=== PATIENT | female | born 1995 | race Caucasian/White ===

== ENCOUNTER → 2022-07-06 | Outpatient (CLI) | payer MEDICAID, SELFPAY ==
--- NOTE | 2022-07-06 14:44 | US_ITS ---
EXAM: US PELVIS TRANSABDOMINAL AND TRANSVAGINAL, COMPLETE CLINICAL INDICATION: pelvic pain, right sided pain TECHNIQUE: Transabdominal and transvaginal pelvic ultrasound was performed with grayscale and color Doppler imaging. Transvaginal imaging was used for better evaluation of the endometrium and adnexa. This report was created using [employer] report generation technology. COMPARISON: None. FINDINGS: UTERUS/CERVIX: The uterus measures 9.6 x 3.8 x 5.8 cm. The endometrium measures 6 mm. Anteverted. There is no uterine mass. RIGHT OVARY: The right ovary measures 2.4 x 4.0 x 2.7 cm. Blood flow is present in the right ovary. LEFT OVARY: Left ovary measures 1.7 x 2.3 x 1.6 cm. Blood flow is present in the left ovary. FREE FLUID: None. BLADDER: Unremarkable as visualized. Wall is normal thickness for degree of distention. US/Transvaginal Non- IMPRESSION: No acute findings in the pelvis. Electronically Signed: Pablo Alfaro MD at 17:47 EST ,
[2022-07-11 21:07] LABS: Chlamydia By Nucleic Acid AMP Negative (Negative)
[2022-07-12 14:57] LABS: Gonococcus By Nucleic Acid AMP Negative (Negative)
[2022-07-15 10:13] LABS: HPV Reflexed? NOT INDICATED
== END | disposition home or self-care (01) ==
PROVIDERS: Referring Provider Registered Nurse; Visit Provider Registered Nurse
DX: R10.2 Pelvic and perineal pain (principal); R10.31 Right lower quadrant pain; Z12.4 Encounter for screening for malignant neoplasm of cervix
CPT/HCPCS: 76830; 76856; 87491; 87591; 88175; 93976; G0145

== ENCOUNTER 2022-07-09 12:33 | Emergency (ER) | payer MEDICAID, SELFPAY ==
[2022-07-09 12:34] VITALS: BP 119/77; PULSE 88; RESP 16; TEMP 36; O2SAT 97; BMI 21.3
--- NOTE | 2022-07-09 13:43 | EDS_ITS ---
HPI HPI - GI History of Present Illness Chief Complaint: Abd Pain Informant: patient Abdominal Pain/Flank Pain Onset: Days Context: Gradual Onset Timing: Continuous Quality: Cramping Location: RLQ Worsened by: Movement (Stretching her abdomen) Relieved by: Nothing Nausea/Vomiting/Emesis GI Symptom: Positive for Nausea; Negative for Vomiting Diarrhea/Melena/Hematochezia GI Symptom: Negative for Diarrhea, Melena or Hematochezia Associated Symptoms Associated Symptoms: Positive for Hematuria; Negative for Dysuria or Frequency LMP: 06/27/2022 Narrative Narrative: Patient presents with right lower quadrant abdominal pain. Patient states she knows she has a right ovarian cyst. Patient states that she has talked to her [employer] who told her to come to the emergency department if her pain became worse. Patient states it has gotten worse. Patient admits to some nausea but denies any vomiting. Patient describes her pain as cramping. Patient states it is mainly over the right lower abdomen. Patient states it is worse whenever she stretches her abdomen. Patient admits to nausea but denies any vomiting. Patient admits to some hematuria but denies any dysuria or frequency. Patient states her last menstrual period was 06/27/2022. [facility] Medical History History of miscarriage Home Medications naproxen 500 mg tablet 500 mg PO BID PRN #20 tabs 07/09/22 [Rx Last Taken Unknown] Allergy/AdvReac Type Severity Reaction Status Date / Time No Known Allergies Allergy Unverified 07/09/22 12:34 Family History Grandmother Diabetes Mother CVA (cerebral vascular accident), Onset Age: 27 Grandfather CAD (coronary artery disease) Social History (Updated 07/06/22 @ 13:40 by Chelo Pena) adopted: No household members: significant other and children housing: other number of children: 2 current occupational status: employed current occupation: [employer] current occupational exposures/hazards: No pets and animals: No history of recent travel: No sexually active: Yes Smoking Status: Never smoker second hand exposure: No alcohol intake: never substance use type: marijuana what type of physical activity do you participate in: none seatbelt use: always do you feel safe at home: Yes ROS ROS ED Constitutional Constitutional ED: Denies chills or fever(s) Eyes Eyes: Reports blurry vision ENT ENT ED: Denies rhinorrhea or sore throat Cardiovascular Cardiovascular: Denies chest pain or palpitations Respiratory/Chest Respiratory/Chest: Reports cough; Denies dyspnea Gastrointestinal Gastrointestinal: Reports abdominal pain and nausea; Denies vomiting Genitourinary Genitourinary ED: Reports hematuria; Denies dysuria Musculoskeletal Musculoskeletal: Denies back pain or neck pain Integumentary Denies abscess or rash Neurologic Neurologic: Reports headache(s); Denies weakness Allergic/Immunologic Allergic/Immunologic ED: Denies mouth swelling or urticaria EXAM Physical Exam Const Vital Signs: 07/09/22 12:34 Temperature 96.8 F L Temperature Source Temporal Pulse Rate 88 Respiratory Rate 16 Blood Pressure 119/77 Blood Pressure Mean 91 Pulse Ox 97 Oxygen Delivery Method Room Air Positive well nourished and well developed General Appearance ED: well developed HEENT Reports moist mucous membranes Neck supple and no JVD Resp normal respiratory effort and clear to auscultation bilaterally Cardio regular rate, regular rhythm and no murmurs GI normal to inspection, nondistended, normoactive bowel sounds Palpation: soft and tender epigastric, LLQ, RLQ, LUQ, RUQ, periumbilical and suprapubic; Negative for guarding or rebound tenderness present Extremity normal to inspection General Extremety ED: Negative for edema or tenderness General Extremity: Negative for edema Neuro oriented x3, CN's II-XII intact bilaterally and no sensory deficits noted Sensorium / Orientation: alert Motor Exam: strength 5/5 throughout Psych mental status grossly normal Skin no rashes or lesions noted MDM MDM MDM Narrative Medical decision making narrative: Patient was given IV fluids and Toradol here. CBC was within normal limits. Comprehensive metabolic profile was within normal limits. Lactate was normal. Serum hCG was negative. Urinalysis does not show any evidence of urinary tract infection or hematuria. Patient was feeling better on reevaluation. I do not feel that an emergent ultrasound is necessary at this time. Patient was given a prescription for Naprosyn. Patient was instructed to follow-up with her [employer] this week as scheduled. Patient understood and was agreeable with the plan. All questions were answered. Lab Data Attestation: I reviewed the patient's lab results. Labs: Laboratory Results - last 24 hr 07/09/22 07/09/22 07/09/22 13:55 14:10 14:10 WBC 6.1 RBC 4.30 Hgb 12.8 Hct 41.0 MCV 95.3 MCH 29.8 MCHC 31.2 L RDW Std Deviation 43.8 RDW Coeff of Gretel 12.5 Plt Count 206 MPV 11.4 Immature Gran % (Auto) 0.300 Neut % (Auto) 74.0 H Lymph % (Auto) 19.4 [place] % (Auto) 5.1 Eos % (Auto) 1.0 Baso % (Auto) 0.2 Absolute Neuts (auto) 4.5 Absolute Lymphs (auto) 1.18 Nucleated RBC % 0 Sodium 141 Potassium 3.8 Chloride 108 H Carbon Dioxide 28.0 Anion Gap 5 BUN 15 Creatinine 0.74 Estim Creat Clear Calc 86.17 Est GFR (MDRD) Af Amer 121 Est GFR (MDRD) Non-Af 100 BUN/Creatinine Ratio 20.4 H Glucose 87 Lactic Acid Calcium 8.9 Total Bilirubin 0.40 AST 14 L ALT 16 Alkaline Phosphatase 42 L Total Protein 7.6 Albumin 3.9 Globulin 3.7 Albumin/Globulin Ratio 1.1 Serum , Qual Urine Color Yellow Urine Clarity Clear Urine pH 6.0 Ur Specific [place] 1.015 Urine Protein Negative Urine Glucose (UA) Normal Urine Ketones Negative Urine Occult Blood Negative Urine Nitrite Negative Urine Bilirubin Negative Urine Urobilinogen Normal Ur Leukocyte Esterase Negative Urine RBC 0 SEEN Urine WBC 0 SEEN Ur Squamous Epith Cells 0-5 SEEN Urine Bacteria 0 SEEN Urine Mucus 0 SEEN 07/09/22 07/09/22 14:10 14:10 WBC RBC Hgb Hct MCV MCH MCHC RDW Std Deviation RDW Coeff of Gretel Plt Count MPV Immature Gran % (Auto) Neut % (Auto) Lymph % (Auto) [place] % (Auto) Eos % (Auto) Baso % (Auto) Absolute Neuts (auto) Absolute Lymphs (auto) Nucleated RBC % Sodium Potassium Chloride Carbon Dioxide Anion Gap BUN Creatinine Estim Creat Clear Calc Est GFR (MDRD) Af Amer Est GFR (MDRD) Non-Af BUN/Creatinine Ratio Glucose Lactic Acid 0.4 Calcium Total Bilirubin AST ALT Alkaline Phosphatase Total Protein Albumin Globulin Albumin/Globulin Ratio Serum , Qual NEGATIVE Urine Color Urine Clarity Urine pH Ur Specific [place] Urine Protein Urine Glucose (UA) Urine Ketones Urine Occult Blood Urine Nitrite Urine Bilirubin Urine Urobilinogen Ur Leukocyte Esterase Urine RBC Urine WBC Ur Squamous Epith Cells Urine Bacteria Urine Mucus Discharge Plan Triage Chief Complaint: Abd Pain ED Provider: Flo Vargas Dx/Rx/DC Orders Clinical Impression: Right ovarian cyst, RLQ abdominal pain Instructions: ED Ovarian Cyst Prescriptions: New naproxen 500 MG tablet 500 mg PO BID PRN Qty: 20 0RF Primary Care Provider: Toni Paz Referrals: Toni Paz [Other] - 3-5 Days Disposition Disposition: Home, Self Care
[2022-07-09 14:03] LABS: Bacteria 0 SEEN /hpf (None Seen); Mucous, Urine 0 SEEN /hpf (<or=2+); Red Blood Cells-Urine 0 SEEN /hpf (0-5); White Blood Cells 0 SEEN /hpf (0-5)
[2022-07-09 14:15] LABS: Color, Urine Yellow (Yellow); Glucose, Dipstick Normal (Normal); Ketone-Dipstick Negative (Negative); Leukocyte Esterase-Dipstick Negative /ul (Negative); Nitrite-Dipstick Negative (Negative); Occult Blood-Urine Negative /ul (Negative); Protein-Dipstick Negative (Negative); Specific Gravity, Urine 1.015 (1.002-1.030); Urine Bilirubin Dipstick Negative (Negative); Urine Clarity Clear (Clear); Urine Urobilinogen Normal (Normal)
[2022-07-09] MEDS: 0.9% Normal Saline 1,000 ML 1000 ML IV (14:16)
[2022-07-09] MEDS: Ketorolac 30 MG/ML Syringe IV (14:17)
[2022-07-09 14:23] LABS: Squamous Epithelial Cells - UA 0-5 SEEN /hpf (5-10)
[2022-07-09 14:26] LABS: Absolute Lymphocyte Count 1.18 X10^3/uL (0.83-4.51); Absolute Neutrophil Count 4.5 X10^3/uL (2.0-7.7); Basophil# 0.01 X10^3/uL; Basophil% 0.2 % (0-1); Eosinophil# 0.06 X10^3/uL; Hemoglobin 12.8 g/dL (12.0-15.0); Lymphocyte # 1.18 X10^3/ul (0.83-4.51); Lymphocyte % 19.4 % (19-41); Mean Corp Hgb Conc 31.2 g/dL (32-36); Mean Corpuscular Hgb 29.8 pg (27.0-32.0); Mean Corpuscular Volume 95.3 fL (81-99); Mean Platelet Vol. 11.4 fl (6.2-12.0); Monocyte# 0.31 X10^3/uL; Monocyte% 5.1 % (0-10); NRBC Flagged by Analyzer 0 % (0-5); Neutrophil # 4.51 X10^3/uL (2.7-7.7); Platelet Count 206 K/mm3 (150-450); RBC Distribution Width CV 12.5 % (11.6-14.6); RBC Distribution Width SD 43.8 fl (35.1-43.9); White Blood Count 6.1 K/mm3 (4.4-11.0)
[2022-07-09 14:43] LABS: Internal QC Validated? YES +Cl - CLEAR BKGD; Pregnancy, Serum, hCG Quali. NEGATIVE Negative
[2022-07-09 14:49] LABS: ALB/GLOB Ratio 1.1 RATIO (0.9-2.4); AST(SGOT) 14 U/L (15-37); Alanine Aminotransfer ALT/SGPT 16 U/L (13-56); Albumin, Serum 3.9 g/dL (3.2-5.0); Alkaline Phosphatase 42 U/L (45-117); Anion Gap 5 (5-15); BUN 15 mg/dL (7-18); BUN/Creat Ratio 20.4 RATIO (10-20); Calcium,Total 8.9 mg/dL (8.5-10.1); Chloride 108 mmol/L (98-107); Creatinine, Serum 0.74 mg/dL (0.55-1.02); EST Glomerular Filtration Rate 100 mL/min (>60); Est Glom Filt Rate - Afr Amer 121 mL/min (>60); Estimated Creatinine Clearance 86.17 ml/min; Globulin 3.7 g/dL (2.2-4.2); Glucose 87 mg/dL (74-106); Potassium 3.8 mmol/L (3.5-5.1); Protein, Total 7.6 g/dL (6.4-8.2); Sodium Level 141 mmol/L (136-145)
[2022-07-09 14:51] LABS: Lactic Acid 0.4 mmol/L (0.4-1.9)
[2022-07-09 15:25] VITALS: BP 110/68; PULSE 78; RESP 16; O2SAT 99
== END 2022-07-09 15:26 | disposition home or self-care (01) ==
PROVIDERS: Emergency Provider Emergency Medicine; Visit Provider Emergency Medicine
DX: N83.201 Unspecified ovarian cyst, right side (principal); R31.9 Hematuria, unspecified; F12.90 Cannabis use, unspecified, uncomplicated; R10.31 Right lower quadrant pain
CPT/HCPCS: 80053; 81001; 83605; 84703; 85025; 96361; 96374; 99282; J7030; A4216

== ENCOUNTER → 2022-08-30 | Outpatient (CLI) | payer MEDICAID, SELFPAY | END | disposition home or self-care (01) | LOC: LABSPEC 14:23 | PROVIDERS: Visit Provider Nurse Practitioner Women's Health | DX: N89.8 Other specified noninflammatory disorders of vagina (principal) | CPT/HCPCS: 87070; 87077; 87205 ==

== ENCOUNTER → 2022-09-30 | Outpatient (CLI) | payer MEDICAID, SELFPAY ==
[2022-09-30 13:53] LABS: Erythrocyte Sedimentation Rate 6 mm/hr (0-30)
[2022-09-30 13:54] LABS: Absolute Lymphocyte Count 1.54 X10^3/uL (0.83-4.51); Absolute Neutrophil Count 4.6 X10^3/uL (2.0-7.7); Basophil# 0.02 X10^3/uL; Basophil% 0.3 % (0-1); Eosinophil# 0.09 X10^3/uL; Eosinophils% 1.4 % (0-5); Hematocrit 38.8 % (37-47); Hemoglobin 12.3 g/dL (12.0-15.0); Lymphocyte # 1.54 X10^3/ul (0.83-4.51); Lymphocyte % 23.2 % (19-41); Mean Corp Hgb Conc 31.7 g/dL (32-36); Mean Corpuscular Hgb 29.7 pg (27.0-32.0); Mean Corpuscular Volume 93.7 fL (81-99); Mean Platelet Vol. 12.1 fl (6.2-12.0); Monocyte# 0.43 X10^3/uL; Monocyte% 6.5 % (0-10); NRBC Flagged by Analyzer 0 % (0-5); Neutrophil # 4.55 X10^3/uL (2.7-7.7); Neutrophil % 68.3 % (47-70); Platelet Count 185 K/mm3 (150-450); RBC Distribution Width CV 12.4 % (11.6-14.6); RBC Distribution Width SD 42.7 fl (35.1-43.9); Red Blood Count 4.14 M/mm3 (4.2-5.4); White Blood Count 6.7 K/mm3 (4.4-11.0)
[2022-09-30 14:03] LABS: AST(SGOT) 16 U/L (15-37); Alanine Aminotransfer ALT/SGPT 17 U/L (13-56); Alkaline Phosphatase 38 U/L (45-117); Anion Gap 4 (5-15); BUN 14 mg/dL (7-18); BUN/Creat Ratio 18.8 RATIO (10-20); CRP < 2.90 mg/L (0.0-3.0); Chloride 107 mmol/L (98-107); Creatinine, Serum 0.74 mg/dL (0.55-1.02); EST Glomerular Filtration Rate 99 mL/min (>60); Est Glom Filt Rate - Afr Amer 120 mL/min (>60); Glucose 87 mg/dL (74-106); LDH 174 U/L (84-246); Potassium 3.9 mmol/L (3.5-5.1); Sodium Level 138 mmol/L (136-145)
[2022-10-03 15:07] LABS: Endomysial Antibody IgA Negative (Negative)
[2022-10-03 19:22] LABS: Immunoglobulin A 256 mg/dL (87-352); t-Transglutaminase IgA <2 U/mL (0-3)
[2022-10-08 15:07] LABS: Albumin 3.9 g/dL (2.9-4.4); Alpha-1-Globulins 0.3 g/dL (0.0-0.4); Alpha-2-Globulins 0.7 g/dL (0.4-1.0); Anti-Centromere B Ab <0.2 AI (0.0-0.9); Anti-Chromatin <0.2 AI (0.0-0.9); Anti-Jo <0.2 AI (0.0-0.9); Anti-Scleroderma-70 AB <0.2 AI (0.0-0.9); Beef <0.10 kU/L (Class 0); Clam <0.10 kU/L (Class 0); Codfish <0.10 kU/L (Class 0); Corn <0.10 kU/L (Class 0); Cytoplasmic Ab (C-ANCA) <1:20 titer (Neg:<1:20); Egg, White <0.10 kU/L (Class 0); Egg, Whole <0.10 kU/L (Class 0); Gamma Globulin 1.6 g/dL (0.4-1.8); Immunoglobulin A 250 mg/dL (87-352); Immunoglobulin E 45 IU/mL (6-495); Immunoglobulin G 1433 mg/dL (586-1602); Immunoglobulin M 89 mg/dL (26-217); Milk (Cow) <0.10 kU/L (Class 0); PROEL- TOTAL PROTEIN 7.6 g/dL (6.0-8.5); Peanut <0.10 kU/L (Class 0); Pork <0.10 kU/L (Class 0); RNP Ab <0.2 AI (0.0-0.9); SCALLOP <0.10 kU/L (Class 0); SESAME SEED <0.10 kU/L (Class 0); SJOGREN'S Anti-SS-A test < 0.2 AI (0.0-0.9); SJOGREN'S Anti-SS-B test < 0.2 AI (0.0-0.9); Shrimp <0.10 kU/L (Class 0); Smith Ab <0.2 AI (0.0-0.9); Soybean <0.10 kU/L (Class 0); Walnut, (Food) <0.10 kU/L (Class 0); Wheat <0.10 kU/L (Class 0)
[2022-10-09 09:19] LABS: Anti-dsDNA Ab 3 IU/mL (0-9); Chocolate <0.10 kU/L (Class 0); Perinuclear Ab (P-ANCA) <1:20 titer (Neg:<1:20)
== END | disposition home or self-care (01) ==
PROVIDERS: Referring Provider Internal Medicine Gastroenterology; Visit Provider Internal Medicine Gastroenterology
DX: R19.7 Diarrhea, unspecified (principal); R10.31 Right lower quadrant pain
CPT/HCPCS: 36415; 80053; 82784; 82785; 83516; 83615; 84165; 85025; 85652; 86003; 86005; 86140; 86225; 86235; 86255; 86256; 86334

== ENCOUNTER → 2022-10-04 | Outpatient (CLI) | payer MEDICAID, SELFPAY | END | disposition home or self-care (01) | LOC: LABSPEC 14:28 | PROVIDERS: Visit Provider Internal Medicine Gastroenterology | DX: R19.7 Diarrhea, unspecified (principal); K58.9 Irritable bowel syndrome, unspecified | CPT/HCPCS: 83630; 87493 ==

== ENCOUNTER → 2022-10-19 | Outpatient (CLI) | payer MEDICAID, SELFPAY ==
--- NOTE | 2022-10-19 08:42 | US_ITS ---
STUDY: ABDOMINAL ULTRASOUND REASON FOR EXAM: Female, 27 years old. Abdomen pain TECHNIQUE: Transabdominal ultrasound was performed with real-time and static dickinson scale imaging. TECHNICAL QUALITY: Adequate. COMPARISON: None. FINDINGS: Liver: The liver measures 11.8 cm. There is normal echogenicity of the liver. The bile ducts are within normal limits. There is hepatic color flow. The direction of portal flow is hepatopetal. There is no demonstrated mass lesion. Gallbladder: Normal distended gallbladder. The gallbladder wall measures 2.5 mm. There is a negative sonographic Loomis''s sign. There is no pericholecystic fluid. There are no gallstones. Common Bile Duct (C.B.D.): The common bile duct measures 2.0 mm. Pancreas: Normal size of the head, body and tail of the pancreas. There is normal echogenicity of the pancreas. There is no demonstrated pancreatic mass or cyst. Spleen: Normal size of the spleen. The spleen measures 8.1 cm x 5.1 cm x 5.3 cm. Right Kidney: Normal size of the right kidney. The right kidney measures 10 cm x 5.5 cm x 4 cm. Normal renal cortex. The right cortex measures 1.8 cm. There is no demonstrated renal mass or cyst. There is no right hydronephrosis. Left Kidney: Normal size of the left kidney. The left kidney measures 10.7 cm x 5.1 cm x 5 cm. Normal renal cortex. The left cortex measures 1.7 cm. There is no demonstrated renal mass or cyst. There is no left hydronephrosis. Aorta: Unremarkable. I.V.C.: The IVC is patent. There is no ascites. US/Abdomen Complete IMPRESSION: Normal abdominal ultrasound examination. Electronically Signed: Willie Francis MD at 18:00 EST ,
--- NOTE | 2022-10-19 09:28 | NM_ITS ---
CLINICAL: 27-year-old female with history of early satiety and clinical gastroparesis. SEMI-SOLID PHASE 99m Tc SULFUR COLLOID GASTRIC EMPTYING STUDY COMPARISON: None available FINDINGS: The patient was administered 1.2 mCi of 99m Tc sulfur colloid mixed with oatmeal and consumed per os. Image acquisitions in the anterior projection were obtained for 60 minutes. There is prompt visualization of the stomach. There is no gastroesophageal reflux identified. First order kinetics are maintained throughout the duration of the acquisitions. The T ? linear fit was extrapolated to be 67.56 minutes, (Normal: 12-56 minutes). NM/Gastric Emptying Study IMPRESSION: 1. ABNORMAL 99m Tc sulfur colloid semi-solid phase (oatmeal) gastric emptying imaging examination. A. There is delayed semi-solid phase gastric emptying compared to normal controls.. (Jake et al, J Nucl Med Tech 38: 186, 2010). Electronically Signed: Bryan Tovar, at 20:46 EST ,
== END | disposition home or self-care (01) ==
LOC: NM 08:40
PROVIDERS: Referring Provider Internal Medicine Gastroenterology; Visit Provider Internal Medicine Gastroenterology
DX: R10.31 Right lower quadrant pain (principal); R19.7 Diarrhea, unspecified
CPT/HCPCS: 76700; 78264; A9541

== ENCOUNTER 2022-10-29 09:38 | Emergency (ER) | payer MEDICAID, SELFPAY ==
[2022-10-29 09:40] VITALS: BP 106/67; PULSE 65; RESP 14; TEMP 36.8; O2SAT 100; BMI 21.4
--- NOTE | 2022-10-29 10:07 | ED.VIS.GI ---
HPI HPI - GI History of Present Illness Chief Complaint: Abd Pain Narrative Narrative: 27-year-old female presents with problems with gastroparesis. She states she has had problems over the last 2 years with abdominal bloating, lower abdominal pain, nausea and vomiting. Approximately 1 year ago she was diagnosed with gastroparesis. However, she is not diabetic, she is not older. She states that she needs to have a work-up with Dr. Purvis scheduled for November, 1 month from now. She has daily problems with abdominal bloating, and nausea and vomiting. She vomited twice today without any blood in her emesis. She also relates history that at times she gets a vaginal bleeding whenever she has exacerbations of this. She went to her [employer], and from their perspective there is no uterine dysfunction. She denies any exacerbating or alleviating factors to her abdominal bloating. She is no longer nauseated. No fever or chills. No exacerbating or alleviating factors. She states that she had to come to the emergency department previously but that was last year. [facility] Medical History Gastroparesis History of miscarriage Home Medications metoclopramide HCl 5 mg tablet (Reglan) 5 mg PO QAC #90 tabs 10/20/22 [Rx Last Taken Unknown] Allergy/AdvReac Type Severity Reaction Status Date / Time No Known Allergies Allergy Unverified 08/30/22 13:26 Family History Grandmother Diabetes Mother CVA (cerebral vascular accident), Onset Age: 27 Grandfather CAD (coronary artery disease) Social History adopted: No household members: significant other and children housing: other number of children: 2 current occupational status: employed current occupation: [employer] current occupational exposures/hazards: No pets and animals: No history of recent travel: No sexually active: Yes Smoking Status: Current some day smoker tobacco type: cigarettes second hand exposure: No alcohol intake: never substance use type: marijuana what type of physical activity do you participate in: none seatbelt use: always do you feel safe at home: Yes ROS ROS ED ROS Narrative Constitutional: No fever, no chills. HEENT: No sore throat. No neck pain. No loss of vision. No rhinorrhea. Cardiovascular: No chest pain. No palpitations. No pedal edema. Respiratory: No cough, no shortness of breath. Abdominal: Lower abdominal pain. Positive nausea and vomiting, vomited twice today with out gross hematemesis. Abdominal bloating. Genitourinary: No dysuria. No hematuria. Musculoskeletal: No myalgias. No arthralgias. Neurologic: No headaches. No dizziness. No lightheadedness. Skin: No rash. No change in color. Psychiatric: No depression. No anxiety. EXAM Physical Exam Narrative Exam Narrative: Afebrile. Vital signs noted. HEENT: Normocephalic. Atraumatic. PERRL, EOMI. Neck soft and supple. No point tenderness or step off. Cardiovascular: Regular rate and rhythm. No murmurs, rubs, or gallops appreciated. Respiratory: No tachypnea. Lungs clear to auscultation bilaterally. Gastrointestinal: Abdomen soft, mild tenderness bilateral lower quadrants. Positive abdominal bloating/distention. Positive bowel sounds. No rebound or guarding. Neurological: Awake. Alert. Nonfocal, nonlateralizing. Skin: No rash. Normal color. No pallor. Musculoskeletal: No pedal edema. Full range of motion extremities. Const Vital Signs: 10/29/22 09:40 10/29/22 11:39 Temperature 98.2 F Temperature Source Temporal Pulse Rate 65 Respiratory Rate 14 16 Blood Pressure 106/67 Blood Pressure Mean 80 Pulse Ox 100 Oxygen Delivery Method Room Air MDM MDM MDM Narrative Medical decision making narrative: Concern is for gastroparesis exacerbation versus small or large bowel obstruction. Comprehensive work-up was pursued. I reviewed her laboratory work, she has normal white count of 6.8, hemoglobin normal at 14.0, hematocrit 42.7. Platelet count normal at 206. In review of her CMP, she has a normal sodium of 141, normal potassium of 3.8, chloride normal at 108. Glucose appropriately elevated at 85 with a normal anion gap of 8. Serum is negative. Lipase normal at 109. Urinalysis shows no evidence of infection. I reviewed her prior records, and she was seen for right lower quadrant abdominal pain thought to be from an ovarian cyst. I do feel that CT imaging might be indicated to help rule out a bowel obstruction. She did drink oral contrast. However, she states that she is having problems with bowel movements and does not want to wait for a CT scan or the results. She was told of the risk of her having a bowel obstruction, albeit low, but would like to sign out AGAINST MEDICAL ADVICE and follow-up with her pc technician, Dr. Purvis. As I do not think that she is having gastroparesis any longer because she is having diarrhea, I feel she can sign out AGAINST MEDICAL ADVICE and go safely home with follow-up. She was told of the risk of permanent disability and , continued pain, and she acknowledges an understanding. I do feel that she has the capacity to sign out AGAINST MEDICAL ADVICE. History & Record Review Discussion w/independent historian: Patient Additional record(s) reviewed:: Prior ED visit and Prior labs Lab Data Attestation: I reviewed the patient's lab results. Labs: Laboratory Results - last 24 hr 10/29/22 10/29/22 10/29/22 10:15 10:15 10:15 WBC 6.8 RBC 4.63 Hgb 14.0 Hct 42.7 MCV 92.2 MCH 30.2 MCHC 32.8 RDW Std Deviation 42.5 RDW Coeff of Gretel 12.5 Plt Count 206 MPV 12.4 H Immature Gran % (Auto) 0.300 Neut % (Auto) 66.4 Lymph % (Auto) 23.7 [place] % (Auto) 7.5 Eos % (Auto) 1.8 Baso % (Auto) 0.3 Absolute Neuts (auto) 4.5 Absolute Lymphs (auto) 1.62 Nucleated RBC % 0 Sodium 141 Potassium 3.8 Chloride 108 H Carbon Dioxide 25.0 Anion Gap 8 BUN 15 Creatinine 0.81 Estim Creat Clear Calc 78.72 Est GFR (MDRD) Af Amer 109 Est GFR (MDRD) Non-Af 90 BUN/Creatinine Ratio 18.6 Glucose 85 Calcium 8.8 Total Bilirubin 0.40 AST 14 L ALT 21 Alkaline Phosphatase 44 L Total Protein 8.4 H Albumin 4.4 Globulin 4.0 Albumin/Globulin Ratio 1.1 Lipase 109 Serum , Qual NEGATIVE Urine Color Urine Clarity Urine pH Ur Specific [place] Urine Protein Urine Glucose (UA) Urine Ketones Urine Occult Blood Urine Nitrite Urine Bilirubin Urine Urobilinogen Ur Leukocyte Esterase Urine RBC Urine WBC Ur Squamous Epith Cells Urine Bacteria Urine Mucus 10/29/22 10:35 WBC RBC Hgb Hct MCV MCH MCHC RDW Std Deviation RDW Coeff of Gretel Plt Count MPV Immature Gran % (Auto) Neut % (Auto) Lymph % (Auto) [place] % (Auto) Eos % (Auto) Baso % (Auto) Absolute Neuts (auto) Absolute Lymphs (auto) Nucleated RBC % Sodium Potassium Chloride Carbon Dioxide Anion Gap BUN Creatinine Estim Creat Clear Calc Est GFR (MDRD) Af Amer Est GFR (MDRD) Non-Af BUN/Creatinine Ratio Glucose Calcium Total Bilirubin AST ALT Alkaline Phosphatase Total Protein Albumin Globulin Albumin/Globulin Ratio Lipase Serum , Qual Urine Color Yellow Urine Clarity Sl. Cloudy Urine pH 5.0 Ur Specific [place] 1.025 Urine Protein Negative Urine Glucose (UA) Normal Urine Ketones Negative Urine Occult Blood 10 H Urine Nitrite Negative Urine Bilirubin Negative Urine Urobilinogen Normal Ur Leukocyte Esterase Negative Urine RBC 0-5 SEEN Urine WBC 0 SEEN Ur Squamous Epith Cells 5-10 SEEN Urine Bacteria RARE Urine Mucus 0 SEEN Discharge Plan Triage Chief Complaint: Abd Pain ED Provider: Beto Hussein Dx/Rx/DC Orders Clinical Impression: Abdominal pain, Diarrhea, Gastroparesis, Left against medical advice Instructions: Gastroparesis, ED Abdominal Pain Unkn Cause Fem, ED Diarrhea, Unknown Cause Prescriptions: No Action metoclopramide HCl [Reglan] 5 mg tablet 5 mg PO QAC Qty: 90 1RF Rx Instructions: administer 30 minutes before meals Primary Care Provider: Care Physician,No Primary Referrals: Daquan Purvis, DO [Med Staff - Active Staff] - As soon as possible Care Physician,No Primary [Primary Care Provider] - Disposition Disposition: Against Medical Advice Discharge Date/Time: 10/29/22 11:57 Capacity Capacity Assessment Tool Can the patient make a choice & communicate that choice?: Yes Can the patient understand benefits, risks and alternatives?: Yes Can the patient make a logical, rational choice?: Yes Is the choice the patient makes consistent w/ their values?: Yes Is there an impending, emergent risk to the patient?: No Is there a Surrogate Available?: No i.e. HCPOA: No i.e. close relative (spouse, child, parent, sibling)?: No
[2022-10-29] MEDS: 0.9% Normal Saline 1,000 ML 1000 ML IV (10:29)
[2022-10-29 10:32] LABS: Absolute Lymphocyte Count 1.62 X10^3/uL (0.83-4.51); Absolute Neutrophil Count 4.5 X10^3/uL (2.0-7.7); Basophil# 0.02 X10^3/uL; Basophil% 0.3 % (0-1); Eosinophil# 0.12 X10^3/uL; Eosinophils% 1.8 % (0-5); Hematocrit 42.7 % (37-47); Lymphocyte # 1.62 X10^3/ul (0.83-4.51); Lymphocyte % 23.7 % (19-41); Mean Corp Hgb Conc 32.8 g/dL (32-36); Mean Corpuscular Hgb 30.2 pg (27.0-32.0); Mean Corpuscular Volume 92.2 fL (81-99); Mean Platelet Vol. 12.4 fl (6.2-12.0); Monocyte# 0.51 X10^3/uL; Monocyte% 7.5 % (0-10); NRBC Flagged by Analyzer 0 % (0-5); Neutrophil # 4.54 X10^3/uL (2.7-7.7); Neutrophil % 66.4 % (47-70); Platelet Count 206 K/mm3 (150-450); RBC Distribution Width CV 12.5 % (11.6-14.6); RBC Distribution Width SD 42.5 fl (35.1-43.9); Red Blood Count 4.63 M/mm3 (4.2-5.4); White Blood Count 6.8 K/mm3 (4.4-11.0)
[2022-10-29 10:44] LABS: Mucous, Urine 0 SEEN /hpf (<or=2+); White Blood Cells 0 SEEN /hpf (0-5)
[2022-10-29 10:46] LABS: Color, Urine Yellow (Yellow); Glucose, Dipstick Normal (Normal); Ketone-Dipstick Negative (Negative); Leukocyte Esterase-Dipstick Negative /ul (Negative); Nitrite-Dipstick Negative (Negative); Occult Blood-Urine 10 /ul (Negative); Protein-Dipstick Negative (Negative); Specific Gravity, Urine 1.025 (1.002-1.030); Urine Bilirubin Dipstick Negative (Negative); Urine Clarity Sl. Cloudy (Clear); Urine Urobilinogen Normal (Normal)
[2022-10-29 10:51] LABS: ALB/GLOB Ratio 1.1 RATIO (0.9-2.4); AST(SGOT) 14 U/L (15-37); Alanine Aminotransfer ALT/SGPT 21 U/L (13-56); Albumin, Serum 4.4 g/dL (3.2-5.0); Alkaline Phosphatase 44 U/L (45-117); Anion Gap 8 (5-15); BUN 15 mg/dL (7-18); BUN/Creat Ratio 18.6 RATIO (10-20); Calcium,Total 8.8 mg/dL (8.5-10.1); Chloride 108 mmol/L (98-107); Creatinine, Serum 0.81 mg/dL (0.55-1.02); EST Glomerular Filtration Rate 90 mL/min (>60); Est Glom Filt Rate - Afr Amer 109 mL/min (>60); Estimated Creatinine Clearance 78.72 ml/min; Glucose 85 mg/dL (74-106); Lipase 109 U/L (73-393); Potassium 3.8 mmol/L (3.5-5.1); Protein, Total 8.4 g/dL (6.4-8.2); Sodium Level 141 mmol/L (136-145)
[2022-10-29 10:52] LABS: Bacteria RARE /hpf (None Seen); Red Blood Cells-Urine 0-5 SEEN /hpf (0-5); Squamous Epithelial Cells - UA 5-10 SEEN /hpf (5-10)
[2022-10-29 10:56] LABS: Internal QC Validated? YES +Cl - CLEAR BKGD; Pregnancy, Serum, hCG Quali. NEGATIVE Negative
[2022-10-29 11:39] VITALS: RESP 16
== END 2022-10-29 11:57 | disposition left against medical advice (07) ==
PROVIDERS: Emergency Provider Emergency Medicine; Visit Provider Emergency Medicine
DX: R10.9 Unspecified abdominal pain (principal); R19.7 Diarrhea, unspecified; K31.84 Gastroparesis; F12.90 Cannabis use, unspecified, uncomplicated; F17.210 Nicotine dependence, cigarettes, uncomplicated; Z53.21 Procedure and treatment not carried out due to patient leaving prior to being seen by health care provider
CPT/HCPCS: 80053; 81001; 83690; 84703; 85025; 99283; A4216

== ENCOUNTER 2023-03-01 10:20 | Day surgery (SDC) | payer MEDICAID, SELFPAY ==
[2022-12-06 12:33] LABS: Internal QC Validated? YES +Cl - CLEAR BKGD; Pregnancy, Urine Negative Negative
--- NOTE | 2022-12-06 12:39 | SUR.PREOP ---
PT HAD EATEN A BANANA AND TOAST AT 0900 AND A FULL MEAL THE PREVIOUS NIGHT, PT WAS UNDER THE IMPRESSION SHE WAS AN EGD AND A COLONOSCOPY, PER ANESTHESIA AND DR. FRIEND PATIENT COULD HAVE EGD AT 3PM BUT WAS NOT SCHEDULED FOR A COLONOSCOPY AND COULDN'T GET THAT DONE TODAY ANYWAYS BECAUSE SHE WAS NOT PROPERLY PREPPED. PT OPTED TO RESCHEDULE HER APPOINTMENT FOR A LATER DATE.
--- NOTE | 2022-12-06 15:47 | SUR.PREOP ---
Patient was not NPO prior to arrival and did not complete bowel prep so was cancelled
--- NOTE | 2023-03-01 10:21 | HP.PCM_ITS ---
History and Physical Date of Admission: 03/01/23 MYESHA FERGUSON, is a 27 F who presents to the office today for Initial consult. [facility] ED presentation 07.09.22 with RLQ abdominal pain with nausea without emesis. Aggravated with abdominal stretching. Career Resource Specialist encouraged presentation for worsening pain r/t right ovarian cyst. Provided with pain and nausea medications and discharged home. 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 Symptom onset following miscarriage with ROQ/pelvic pain, loose stools with increased frequency and urgency with one episode of blood, bloating with increased abdominal discomfort (days with bloating are significantly worse than other days). With onset symptoms were severe and have since settled to be present though not as intense. Prior to symptom onset she was having normal and daily BM without difficulty and complete evacuation. She does have anxiety/depression at a low/moderate, also diagnosed with Schizophrenia which she feels is well managed. ROS Const Constitutional: No anorexia, fatigue, fever(s), weight change or sleep problems Eyes Eyes: No change in vision ENT ENT: No abnormal hearing, difficulty swallowing, mouth lesions, tongue swelling or throat swelling Resp Respiratory: No cough or shortness of breath Cardio Cardiology: No chest pain at rest, chest pain with exertion, shortness of breath or dyspnea on exertion Gastro GI: No difficulty swallowing Genitourinary-Female: No difficulty urinating or burning urination Musc Musculoskeletal: No joint pain, joint swelling, muscle weakness or decreased muscle mass Skin Skin: No hair loss in leg, yellowing of the eye, itchy eyes, rash, skin ulcer or skin swelling Neuro Neurology: No abnormal hearing, abnormal movements, confusion, unsteady gait/balance or memory loss Psych Psychiatric: No anxiety, No confusion and No memory loss Endo Endocrine: No fatigue or weight change Aller/Imm Allergy/Immunologic: No itchy eyes, throat swelling or tongue swelling Alfred/Lymp Hematologic/Lymphatic: No easy bleeding, easy bruising or enlarged lymph nodes Exam Const General: cooperative and comfortable Nutritional Appearance: average body habitus and well nourished [facility] Head: normal to inspection Ears: hearing grossly normal bilaterally Nose: external nose normal Face and sinus: normal facial exam Mouth: oral mucosae normal Throat: posterior oropharynx normal Eyes General: appearance normal, both eyes and all related structures Neck Neck: normal visual inspection Chest Chest palpation & inspection: normal inspection of the chest and normal palpatio n of entire chest wall Resp Effort & Inspection: normal respiratory effort Auscultation: Bilateral: Clear to Auscultation Cardio Palpation: normal PMI Rate: regular rate Rhythm: regular rhythm GI Inspection: normal to inspection Auscultation: normal bowel sounds Percussion: normal to percussion Palpation: no hepatosplenomegaly Skin General: no rashes or lesions noted Neuro General: patient alert Extrem General: normal to inspection Psych Affect: normal affect Quality Reporting Tobacco Screening ([facility] 138) Smoking Status: Never smoker Assessment and Plan Assessment and Plan (1) RLQ abdominal pain: Status: Chronic Comment: exam likely ovarian cyst Plan: Differential diagnosis for chronic right lower quadrant abdominal pain does include volvulus and less likely intussusception or colonic Crohn's disease. We will get a CT scan abdomen pelvis for further evaluation. (2) Frequent loose stools: Status: Chronic Plan: The differential diagnosis for her symptoms to include celiac disease, inflammatory bowel disease, IBS with diarrhea, hypergastrinemia, protein-losing enteropathy, exocrine pancreatic insufficiency. We will do biochemical testing and stool testing for a full evaluation of her GI tract as she has had other evaluations including upper and lower endoscopy which may need to be repeated. However I would like to see if we can find a organic cause prior to invasive testing. Orders: Orders Comprehensive Metabolic Profil Today R10.31 - Right lower quadrant pain, R19.7 - Diarrhea, unspecified CRP Today R10.31 - Right lower quadrant pain, R19.7 - Diarrhea, unspecified LDH Today R10.31 - Right lower quadrant pain, R19.7 - Diarrhea, unspecified Abdomen/Pelvis WITH Contrast Today R10.31 - Right lower quadrant pain, R19.7 - Diarrhea, unspecified CBC W/Diff, Automated Today R10.31 - Right lower quadrant pain, R19.7 - Diarrhea, unspecified Erythrocyte Sed Rate Today R10.31 - Right lower quadrant pain, R19.7 - Diarrhea, unspecified ASAEL Comprehensive Panel Today R10.31 - Right lower quadrant pain, R19.7 - Diarrhea, unspecified Calprotectin, Stool Today R10.31 - Right lower quadrant pain, R19.7 - Diarrhea, unspecified OVA+PARA w/Giardia EIA [id number] Today R10.31 - Right lower quadrant pain, R19.7 - Diarrhea, unspecified CDIFF (PCR) Today R10.31 - Right lower quadrant pain, R19.7 - Diarrhea, unspecified ENTERIC PATHOGEN PANEL STOOL Today K58.9 - Irritable bowel syndrome without diarrhea, R10.31 - Right lower quadrant pain, R19.7 - Diarrhea, unspecified Stool Lactoferrin/WBC Today R10.31 - Right lower quadrant pain, R19.7 - Diarrhea, unspecified ANCA Today R10.31 - Right lower quadrant pain, R19.7 - Diarrhea, unspecified Celiac Disease Profile Today R10.31 - Right lower quadrant pain, R19.7 - Diarrhea, unspecified Immunoglobulins G/A/M/E Today R10.31 - Right lower quadrant pain, R19.7 - Diarrhea, unspecified MARCUS + Protein Elect, Serum Today R10.31 - Right lower quadrant pain, R19.7 - Diarrhea, unspecified Pancreatic Elastase, Fecal Today R10.31 - Right lower quadrant pain, R19.7 - Diarrhea, unspecified Miscellaneous Lab Procedure Today R10.31 - Right lower quadrant pain, R19.7 - Diarrhea, unspecified Allergen, Rast Food Profile Today R10.31 - Right lower quadrant pain, R19.7 - Diarrhea, unspecified Allergen, Food Profile Today R10.31 - Right lower quadrant pain, R19.7 - Diarrhea, unspecified Gastric Emptying Study Today R10.31 - Right lower quadrant pain, R19.7 - Diarrhea, unspecified I have examined the patient and the H&P has been reviewed. There are no clinical changes since date of exam.
[2023-03-01 10:38] LABS: Internal QC Validated? YES +Cl - CLEAR BKGD; Pregnancy, Urine Negative Negative
[2023-03-01 10:48] VITALS: BP 110/70; PULSE 63; RESP 16; TEMP 36.7; O2SAT 100; BMI 22.4
--- NOTE | 2023-03-01 11:15 | IMM_PTH ---
PATIENT: MYESHA FERGUSON LOC: EN U#:[id number] AGE/SX: 28/F ROOM: RE03/01/[address]: Dr. Daquan Purvis DO : 1995 BED: DIS: 03/01/2023 SPEC #: [id number] RECD: 03/02/23 13:09 STATUS: HARSH REBertrand #: [id number] CHUCK: 03/01/23 11:[address]: Daquan Purvis DEPT: IMMUNOHISTOCHEMISTRY RECD BY: Bryanna Gil ENTERED: 03/02/23 13:10 SP TYPE: IMMUNO OT DR: Cristal Primary Care Phys Tissues: A - Gastric mucous membrane Procedures: H Pylori (initial) PHYSICIAN & INSTITUTION [place] [address] SPECIMEN INFORMATION: Tissue Source: A - Gastric cardia Clinical Info: RLQ abdominal pain, frequent loose stools Specimen Number: [id number] CPT code: 37684 METHODOLOGY: Deparaffinized sections of prefer/formalin-fixed tissue or PAP/DQ stained slides are incubated with monoclonal/polyclonal antibodies/oligonucleotide probes. Localization is made via biotin free immunoperoxidase method. Appropriate controls are performed and reacted as expected. Results on target cell population are indicated in the following table: RESULTS: ANTIBODY / CLONE RESULT Block A H Pylori (polyclonal) positive These tests were developed and their performance characteristics determined by [facility]. They may not have been cleared or approved by the U.S. Food and Drug Administration. The FDA has determined that such clearance or approval is not necessary. The above immunohistochemical/dualISH markers are ordered and reviewed by the Pathologist. INTERPRETATION: A. Gastric cardia, biopsy: Positive for a few Helicobacter pylori organisms. ADDIE:darwin 03/03/2023
--- NOTE | 2023-03-01 11:15 | EGD_PTH ---
PATIENT: MYESHA FERGUSON LOC: EN U#:[id number] AGE/SX: 28/F ROOM: RE03/01/[address]: Dr. Daquan Purvis DO : 1995 BED: DIS: 03/01/2023 SPEC #: [id number] RECD: 03/01/23 14:05 STATUS: HARSH SAHRA #: [id number] CHUCK: 03/01/23 11:[address]: Daquan uPrvis DEPT: SURGICAL PATHOLOGY RECD BY: Nelida Ramos ENTERED: 03/02/23 09:58 SP TYPE: EGD BIOPSY OT DR: Cristal Primary Care Phys Tissues: A - Gastric mucous membrane B - Duodenum, NOS C - Sigmoid colon biopsy D - Ileum, NOS E - COLON BIOPSY Procedures: Surgery Specimen Level IV HEADER OPERATION: Colonoscopy, EGD ([facility] [place]), biopsy, polypectomy PRE-OP DIAGNOSIS: RLQ abdominal pain, frequent loose stools TISSUE SUBMITTED: A - Gastric cardia biopsy, B - Duodenum biopsy, C - Sigmoid polyp, D - Terminal ileum biopsy, E - Random colonic biopsy MICROSCOPIC DIAGNOSIS A. Gastric cardia, biopsy: Moderate gastritis. See microscopic description and comment. B. Duodenum, biopsy: Fragments of duodenal mucosa, no pathologic diagnosis. C. Sigmoid polyp, polypectomy: Tubular adenoma. D. Terminal ileum, biopsy: Fragments of small intestinal mucosa with focal ulceration and associated acute inflammation. See comment. E. 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 SJ:darwin 03/03/2023 COMMENT A. The results of immunohistochemistry for Helicobacter pylori will be reported separately ([id number]). D. Focal cryptitis is noted. Mild glandular distortion is also present. Crypt abscesses or granulomas are not seen. No evidence of dysplasia. Correlation with clinical, endoscopic findings and appropriate follow-up are necessary. MICROSCOPIC DESCRIPTION Slides are reviewed. A. The specimen shows fragments of gastric mucosa with chronic inflammatory cell infiltrates in the lamina propria consisting of lymphocytes and plasma cells, consistent with moderate chronic gastritis. GROSS DESCRIPTION A - Received in fixative is one container labeled with the patient's name and designated gastric cardia biopsy. The specimen consists of multiple irregular fragments of light jansen soft tissue that in aggregate measure 1.0 x 0.3 x 0.1 cm. The specimen is totally submitted in one cassette. B - Received in fixative is one container labeled with the patient's name and designated duodenum biopsy. The specimen consists of two irregular fragments of light jansen soft tissue that in aggregate measure 0.6 x 0.3 x 0.1 cm. The specimen is totally submitted in one cassette. C - Received in fixative is one container labeled with the patient's name and designated sigmoid polyp. The specimen consists of a pink-red polyp measuring 0.6 x 0.6 x 0.6 cm. The presumed base is inked. A few fragments of hemorrhagic mucoid tissue is also noted. The polyp is bisected. The entire specimen is submitted in one cassette. D - Received in fixative is one container labeled with the patient's name and designated terminal ileum biopsy. The specimen consists of multiple irregular fragments of light jansen soft tissue that in aggregate measure 1.0 x 0.3 x 0.1 cm. The specimen is totally submitted in one cassette. E - Received in fixative is one container labeled with the patient's name and designated random colonic biopsy. The specimen consists of multiple irregular fragments of light jansen soft tissue that in aggregate measure 2.0 x 0.3 x 0.1 cm. The specimen is totally submitted in one cassette. / SJ:rg 03/02/2023 TC:2 CPT: 54025 x5
[2023-03-01] MEDS: Lactated Ringers 1,000 ML 15 ML IV (11:30)
[2023-03-01 11:51] VITALS: BP 108/72; BP 110/70; PULSE 86; RESP 16; TEMP 36.6; O2SAT 100
[2023-03-01 11:55] VITALS: BP 101/75; BP 110/70; PULSE 72; RESP 16; O2SAT 100
--- NOTE | 2023-03-01 11:56 | OP.EGD_ITS ---
Patient Name: Sarah Pearson Procedure Date: 03/01/2023 11:24 AM Date of : 1995 Age: 28 Procedure: Upper GI endoscopy Indications: Epigastric abdominal pain Providers: Daquan Purvis DO Referring MD: No Primary Care Physician Medicines: Monitored Anesthesia Care Patient Profile: This is a 28 year old female. Refer to note in patient chart for documentation of history and physical. Patient has symptoms of acute epigastric abdominal pain. Complications: No immediate complications. Procedure: Pre-Anesthesia Assessment: - Prior to the procedure, a History and Physical was performed, and patient medications and allergies were reviewed. The patient is competent. The risks and benefits of the procedure and the sedation options and risks were discussed with the patient. All questions were answered and informed consent was obtained. Patient identification and proposed procedure were verified by the physician in the pre-procedure area. Mental Status Examination: alert and oriented. Airway Examination: normal oropharyngeal airway and neck mobility. Respiratory Examination: clear to auscultation. Prophylactic Antibiotics: The patient does not require prophylactic antibiotics. Prior Anticoagulants: The patient has taken no previous anticoagulant or antiplatelet agents. After reviewing the risks and benefits, the patient was deemed in satisfactory condition to undergo the procedure. The anesthesia plan was to use minimal sedation / analgesia (anxiolysis). Immediately prior to administration of medications, the patient was re-assessed for adequacy to receive sedatives. The heart rate, respiratory rate, oxygen saturations, blood pressure, adequacy of pulmonary ventilation, and response to care were monitored throughout the procedure. The physical status of the patient was re-assessed after the procedure. After obtaining informed consent, the endoscope was passed under direct vision. Throughout the procedure, the patient's blood pressure, pulse, and oxygen saturations were monitored continuously. The Colonoscope was introduced through the mouth, and advanced to the second part of duodenum. The upper GI endoscopy was accomplished without difficulty. The patient tolerated the procedure well. Scope In: 11:29:08 AM Scope Out: 11:31:53 AM Total Procedure Duration Time 0 hours 2 minutes 45 seconds Findings: The examined esophagus was normal. Diffuse severe inflammation with hemorrhage characterized by adherent blood, erosions, erythema and friability was found in the stomach. Biopsies were taken with a cold forceps for histology. Verification of patient identification for the specimen was done. Estimated blood loss was minimal. Patchy mildly erythematous mucosa without active bleeding and with no stigmata of bleeding was found in the duodenal bulb. Biopsies were taken with a cold forceps for histology. Verification of patient identification for the specimen was done. Estimated blood loss was minimal. Impression: - Normal esophagus. - Bile gastritis with hemorrhage. Biopsied. - Erythematous duodenopathy. Biopsied. Recommendation: - Discharge patient to home. - Resume previous diet. - Continue present medications. - Await pathology results. Procedure Code(s): --- Professional --- 65846, Esophagogastroduodenoscopy, flexible, transoral; with biopsy, single or multiple CPT copyright 2017 [employer]. All rights reserved. The codes documented in this report are preliminary and upon food selector review may be revised to meet current compliance requirements. Daquan Purvis DO 03/01/2023 11:55:45 AM This report has been signed electronically. Number of Addenda: 0 Note Initiated On: 03/01/2023 11:24 AM
--- NOTE | 2023-03-01 11:56 | OP.CCLET_ITS ---
03/01/2023 No Primary Care Physician Re : Upper GI endoscopy procedure for Sarah Pearson Dear Care Physician This procedure was performed on Wednesday, March 01, 2023. My impressions and recommendations are as follows: Impressions : - Normal esophagus. - Bile gastritis with hemorrhage. Biopsied. - Erythematous duodenopathy. Biopsied. Recommendations : - Discharge patient to home. - Resume previous diet. - Continue present medications. - Await pathology results. My findings are described in the full procedure note, which is enclosed. If I can be of further assistance, please feel free to contact me at . Sincerely, Daquan Purvis, 03/01/2023 11:55:45 AM This report has been signed electronically.
--- NOTE | 2023-03-01 11:59 | OP.COLON_ITS ---
Patient Name: Sarah Pearson Procedure Date: 03/01/2023 11:32 AM Date of : 1995 Age: 28 Procedure: Colonoscopy Indications: Generalized abdominal pain, Chronic diarrhea Providers: Daquan Purvis DO Referring MD: No Primary Care Physician Medicines: Monitored Anesthesia Care Patient Profile: This is a 28 year old female. Refer to note in patient chart for documentation of history and physical. Patient has symptoms of acute epigastric abdominal pain. Last Colonoscopy: none. The patient's first colonoscopy is today. Complications: No immediate complications. Procedure: Pre-Anesthesia Assessment: - Prior to the procedure, a History and Physical was performed, and patient medications and allergies were reviewed. The patient is competent. The risks and benefits of the procedure and the sedation options and risks were discussed with the patient. All questions were answered and informed consent was obtained. Patient identification and proposed procedure were verified by the physician in the pre-procedure area. Mental Status Examination: alert and oriented. Airway Examination: normal oropharyngeal airway and neck mobility. Respiratory Examination: clear to auscultation. Prophylactic Antibiotics: The patient does not require prophylactic antibiotics. Prior Anticoagulants: The patient has taken no previous anticoagulant or antiplatelet agents. After reviewing the risks and benefits, the patient was deemed in satisfactory condition to undergo the procedure. The anesthesia plan was to use minimal sedation / analgesia (anxiolysis). Immediately prior to administration of medications, the patient was re-assessed for adequacy to receive sedatives. The heart rate, respiratory rate, oxygen saturations, blood pressure, adequacy of pulmonary ventilation, and response to care were monitored throughout the procedure. The physical status of the patient was re-assessed after the procedure. After I obtained informed consent, the scope was passed under direct vision. Throughout the procedure, the patient's blood pressure, pulse, and oxygen saturations were monitored continuously. The Colonoscope was introduced through the anus and advanced to the terminal ileum. The colonoscopy was performed without difficulty. The patient tolerated the procedure well. The quality of the bowel preparation was adequate. Scope In: 11:33:36 AM Scope Withdrawal Time 0 hours 6 minutes 5 seconds Scope Out: 11:44:18 AM Total Procedure Duration Time 0 hours 10 minutes 42 seconds Findings: The perianal and digital rectal examinations were normal. An area of moderately congested mucosa was found in the recto-sigmoid colon. Biopsies were taken with a cold forceps for histology. Verification of patient identification for the specimen was done. Estimated blood loss was minimal. A 29 mm polyp was found in the sigmoid colon. The polyp was sessile. The polyp was removed with a hot snare. Resection and retrieval were complete. Verification of patient identification for the specimen was done. Estimated blood loss was minimal. Patchy inflammation, moderate in severity and characterized by congestion (edema), erythema, friability and aphthous ulcerations was found in the terminal ileum. Biopsies were taken with a cold forceps for histology. Verification of patient identification for the specimen was done. Impression: - Congested mucosa in the recto-sigmoid colon. Biopsied. - One 29 mm polyp in the sigmoid colon, removed with a hot snare. Resected and retrieved. - Inflammatory bowel disease. Biopsied. Recommendation: - Await pathology results. - Repeat colonoscopy in 2 years for surveillance. - Continue present medications. Procedure Code(s): --- Professional --- 19043, Colonoscopy, flexible; with removal of tumor(s), polyp(s), or other lesion(s) by snare technique 85034, 59, Colonoscopy, flexible; with biopsy, single or multiple CPT copyright 2017 [employer]. All rights reserved. The codes documented in this report are preliminary and upon radar signal processing engineer review may be revised to meet current compliance requirements. Daquan Purvis DO 03/01/2023 11:59:31 AM This report has been signed electronically. Number of Addenda: 0 Note Initiated On: 03/01/2023 11:32 AM
--- NOTE | 2023-03-01 12:00 | OP.CCLET_ITS ---
03/01/2023 No Primary Care Physician Re : Colonoscopy procedure for Sarah Pearson Dear Care Physician This procedure was performed on Wednesday, March 01, 2023. My impressions and recommendations are as follows: Impressions : - Congested mucosa in the recto-sigmoid colon. Biopsied. - One 29 mm polyp in the sigmoid colon, removed with a hot snare. Resected and retrieved. - Inflammatory bowel disease. Biopsied. Recommendations : - Await pathology results. - Repeat colonoscopy in 2 years for surveillance. - Continue present medications. My findings are described in the full procedure note, which is enclosed. If I can be of further assistance, please feel free to contact me at . Sincerely, Daquan Purvis, 03/01/2023 11:59:31 AM This report has been signed electronically.
[2023-03-01 12:02] VITALS: BP 104/81; BP 110/70; PULSE 65; RESP 16; O2SAT 100
[2023-03-01 12:06] VITALS: BP 107/61; BP 110/70; PULSE 68; RESP 18; TEMP 36.4; O2SAT 100
[2023-03-01 12:24] VITALS: BP 110/70
[2023-03-01 13:58] LABS: Erythrocyte Sedimentation Rate 9 mm/hr (0-30)
[2023-03-01 14:12] LABS: CRP, High Sensitivity Cardiac 3.79 mg/L
[2023-03-03 14:54] LABS: HEPATITIS B SURFACE AG Negative (Negative); Hep C Antibodies Non Reactive (Non Reactive); Hepatitis A IgM Antibody Negative (Negative); Hepatitis B Core AB IgM Negative (Negative); QNTFERON TB Nil Value 0 IU/mL (.); QNTFERON TB1+ Ag Value 0.01 IU/mL (.); QNTFERON TB2+ Ag Value 0.01 IU/mL (.); QNTIFERON TB Positive Criteria Negative (Negative)
== END 2023-03-01 12:45 | disposition home or self-care (01) ==
LOC: EN 10:20 → AC 10:21
PROVIDERS: Anesthesiology; Visit Provider Internal Medicine Gastroenterology
PROC: 0DJD8ZZ Inspection of Lower Intestinal Tract, Via Natural or Artificial Opening Endoscopic (ICD-10-PCS; CPT 45378; principal; 2023-03-01 11:10)
DX: K29.61 Other gastritis with bleeding (principal); B96.81 Helicobacter pylori [H. pylori] as the cause of diseases classified elsewhere; K31.89 Other diseases of stomach and duodenum; K58.0 Irritable bowel syndrome with diarrhea; D12.5 Benign neoplasm of sigmoid colon
CPT/HCPCS: 43239; 45385; 45380; 36415; 80074; 81025; 85652; 86141; 86480; 88305; 88342; J7120; J2405

== ENCOUNTER → 2023-09-26 | Outpatient (CLI) | payer MEDICAID, SELFPAY | END | disposition home or self-care (01) | LOC: LABSPEC 16:42 | PROVIDERS: Referring Provider Advanced Practice Midwife; Visit Provider Advanced Practice Midwife | DX: N89.8 Other specified noninflammatory disorders of vagina (principal) | CPT/HCPCS: 87070; 87205 ==

== ENCOUNTER → 2023-11-14 | Outpatient (CLI) | payer MEDICAID, SELFPAY ==
[2023-11-20 04:07] LABS: H. PYLORI STOOL AG Positive (Negative); Pancreatic Elastase, Fecal 409 (>200)
[2023-11-21 01:06] LABS: Calprotectin, Stool 44 ug/g (0-120); Fats, Neutral Normal (.); Fats, Total Normal (.)
== END | disposition home or self-care (01) ==
LOC: LABSPEC 10:43
PROVIDERS: Referring Provider Internal Medicine Gastroenterology; Visit Provider Internal Medicine Gastroenterology
DX: A04.8 Other specified bacterial intestinal infections (principal); K59.1 Functional diarrhea
CPT/HCPCS: 82274; 82653; 82705; 83630; 83993; 87177; 87209; 87329; 87338; 87506

== ENCOUNTER → 2024-05-09 | Outpatient (CLI) | payer MEDICAID, SELFPAY ==
[2024-05-09 15:14] LABS: Amphetamine Urine VISTA NEGATIVE (<1000 ng/mL); Barbiturate Urine VISTA NEGATIVE (< 200 ng/mL); Benzodiazepine Urine VISTA NEGATIVE (< 200 ng/mL); Cocaine Urine VISTA NEGATIVE (< 300 ng/mL); Ecstacy Urine VISTA NEGATIVE (< 500 ng/mL); Methadone Urine VISTA NEGATIVE (< 300 ng/mL); PCP Urine VISTA NEGATIVE (< 25 ng/mL); THC Urine VISTA NEGATIVE (< 50 ng/mL); Vista UDS pH Range 5
[2024-05-13 22:06] LABS: Chlamydia By Nucleic Acid AMP Negative (Negative); Gonococcus By Nucleic Acid AMP Negative (Negative)
== END | disposition home or self-care (01) ==
LOC: LABSPEC 14:23
PROVIDERS: Referring Provider Advanced Practice Midwife; Visit Provider Advanced Practice Midwife
DX: O09.90 Supervision of high risk pregnancy, unspecified, unspecified trimester (principal); O99.320 Drug use complicating pregnancy, unspecified trimester; F12.99 Cannabis use, unspecified with unspecified cannabis-induced disorder; Z3A.00 Weeks of gestation of pregnancy not specified
CPT/HCPCS: 80307; 87077; 87086; 87088; 87186; 87491; 87591

== ENCOUNTER → 2024-05-13 | Outpatient (CLI) | payer MEDICAID, SELFPAY ==
[2024-05-13 12:39] LABS: Absolute Lymphocyte Count 1.12 X10^3/uL (0.83-4.51); Absolute Neutrophil Count 5.6 X10^3/uL (2.0-7.7); Basophil# 0.02 X10^3/uL; Basophil% 0.3 % (0-1); Eosinophil# 0.01 X10^3/uL; Eosinophils% 0.1 % (0-5); Hemoglobin 12.2 g/dL (12.0-15.0); Lymphocyte # 1.12 X10^3/ul (0.83-4.51); Lymphocyte % 15.9 % (19-41); Mean Corpuscular Hgb 30.2 pg (27.0-32.0); Mean Corpuscular Volume 91.6 fL (81-99); Mean Platelet Vol. 11.6 fl (6.2-12.0); Monocyte# 0.29 X10^3/uL; Monocyte% 4.1 % (0-10); NRBC Flagged by Analyzer 0 % (0-5); Neutrophil # 5.57 X10^3/uL (2.7-7.7); Neutrophil % 79.2 % (47-70); Platelet Count 198 K/mm3 (150-450); RBC Distribution Width CV 12.1 % (11.6-14.6); RBC Distribution Width SD 40.9 fl (35.1-43.9); Red Blood Count 4.04 M/mm3 (4.2-5.4)
[2024-05-13 13:36] LABS: HIV - WCH Non-Reactive (Nonreactive); Hepatitis B Surface Antigen Non-Reactive (Nonreactive); Hepatitis C Antibody Non-Reactive (Nonreactive); Rubella IgG Reactive (Nonreactive)
== END | disposition home or self-care (01) ==
PROVIDERS: Referring Provider Advanced Practice Midwife; Visit Provider Advanced Practice Midwife
DX: O09.91 Supervision of high risk pregnancy, unspecified, first trimester (principal); Z3A.00 Weeks of gestation of pregnancy not specified
CPT/HCPCS: 36415; 85025; 86703; 86762; 86803; 86850; 86900; 86901; 87340

== ENCOUNTER → 2024-05-31 | Outpatient (CLI) | payer MEDICAID, SELFPAY | END | disposition home or self-care (01) | LOC: LABSPEC 15:52 | PROVIDERS: Referring Provider Advanced Practice Midwife; Visit Provider Advanced Practice Midwife | DX: O23.40 Unspecified infection of urinary tract in pregnancy, unspecified trimester (principal); Z3A.00 Weeks of gestation of pregnancy not specified | CPT/HCPCS: 87086 ==

== ENCOUNTER → 2024-06-24 | Outpatient (CLI) | payer MEDICAID, SELFPAY | END | disposition home or self-care (01) | LOC: BWCLAB 10:58 → LABSPEC 10:59 | PROVIDERS: Referring Provider Nurse Practitioner Women's Health; Visit Provider Nurse Practitioner Women's Health | DX: R30.0 Dysuria (principal) | CPT/HCPCS: 87086 ==

== ENCOUNTER 2024-08-22 13:57 | Outpatient (CLI) | payer MEDICAID, SELFPAY ==
[2024-08-22 14:09] VITALS: BMI 27.0
--- NOTE | 2024-08-22 14:11 | US_ITS ---
STUDY: SECOND AND THIRD TRIMESTER OBSTETRICAL ULTRASOUND - LIMITED REASON FOR EXAM: Female, 29 years old cervical length and placenta placement/integrity -- vaginal bleeding LMP: March 03, 2024. PRIOR ULTRASOUND: None. TECHNIQUE: Transabdominal and Transvaginal TECHNICAL QUALITY: Adequate. FINDINGS: There is a single intrauterine fetus. The fetus is in a breech presentation. There is demonstrated cardiac activity with a heart rate of 141 bpm.. The cervix measures 4.1 cm in length. Trace amount of fluid is seen in the cervix. The placenta is anterior and not low-lying. BIOMETRY: Age by LMP: 24 weeks, 4 days. ADRIEL by LMP: December 08, 2024.. US/OB Limited (No Biometrics) IMPRESSION: The cervix measures 4.1 cm in length. Small amount of fluid is seen in the cervix. Breech presentation. Electronically Signed: Willie Francis MD at 15:23 EST ,
[2024-08-22 14:18] VITALS: BP 110/70; PULSE 88; RESP 15; TEMP 37.2; O2SAT 99
[2024-08-22 14:23] VITALS: BP 110/70; PULSE 81; PULSE 90; O2SAT 99
[2024-08-22 14:37] LABS: Hematocrit 32.9 % (37-47); Hemoglobin 10.7 g/dL (12.0-15.0); Mean Corp Hgb Conc 32.5 g/dL (32-36); Mean Corpuscular Volume 92.2 fL (81-99); Mean Platelet Vol. 11.7 fl (6.2-12.0); Platelet Count 197 K/mm3 (150-450); RBC Distribution Width CV 12.3 % (11.6-14.6); RBC Distribution Width SD 41.3 fl (35.1-43.9); Red Blood Count 3.57 M/mm3 (4.2-5.4); White Blood Count 8.3 K/mm3 (4.4-11.0)
[2024-08-22 14:46] LABS: International Normalized Ratio 0.9; Prothrombin Time (Protime)PT. 12.6 SECONDS (11.7-14.9)
[2024-08-22 14:47] LABS: Fibrinogen 421 mg/dl (203-444); Partial Thromboplast Time 26.2 Seconds (24.1-36.2)
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
== END 2024-08-22 15:50 | disposition home or self-care (01) ==
LOC: WPOUT 14:01 → WP 14:01
PROVIDERS: Referring Provider Obstetrics & Gynecology; Visit Provider Obstetrics & Gynecology
DX: O46.92 Antepartum hemorrhage, unspecified, second trimester (principal); O26.22 Pregnancy care for patient with recurrent pregnancy loss, second trimester; O99.820 Streptococcus B carrier state complicating pregnancy; O99.342 Other mental disorders complicating pregnancy, second trimester; F43.10 Post-traumatic stress disorder, unspecified; Z3A.24 24 weeks gestation of pregnancy
CPT/HCPCS: 36415; 59025; 59050; 76815; 85027; 85384; 85610; 85730; 99221; G0378

== ENCOUNTER → 2024-08-29 | Outpatient (CLI) | payer MEDICAID, SELFPAY ==
[2024-08-29 10:56] LABS: Absolute Lymphocyte Count 1.36 X10^3/uL (0.83-4.51); Absolute Neutrophil Count 5.8 X10^3/uL (2.0-7.7); Basophil# 0.01 X10^3/uL; Basophil% 0.1 % (0-1); Eosinophil# 0.04 X10^3/uL; Eosinophils% 0.5 % (0-5); Hematocrit 36.2 % (37-47); Hemoglobin 11.7 g/dL (12.0-15.0); Lymphocyte # 1.36 X10^3/ul (0.83-4.51); Lymphocyte % 17.8 % (19-41); Mean Corp Hgb Conc 32.3 g/dL (32-36); Mean Corpuscular Hgb 29.9 pg (27.0-32.0); Mean Corpuscular Volume 92.6 fL (81-99); Mean Platelet Vol. 11.6 fl (6.2-12.0); Monocyte# 0.38 X10^3/uL; NRBC Flagged by Analyzer 0 % (0-5); Neutrophil # 5.84 X10^3/uL (2.7-7.7); Neutrophil % 76.2 % (47-70); Platelet Count 192 K/mm3 (150-450); RBC Distribution Width CV 12.7 % (11.6-14.6); Red Blood Count 3.91 M/mm3 (4.2-5.4); White Blood Count 7.7 K/mm3 (4.4-11.0)
[2024-08-29 11:13] LABS: Fibrinogen 434 mg/dl (203-444)
== END | disposition home or self-care (01) ==
LOC: BWCLAB 10:31
PROVIDERS: Referring Provider Advanced Practice Midwife; Visit Provider Advanced Practice Midwife
DX: O46.90 Antepartum hemorrhage, unspecified, unspecified trimester (principal); Z3A.00 Weeks of gestation of pregnancy not specified

== ENCOUNTER → 2024-09-18 | Outpatient (CLI) | payer MEDICAID, SELFPAY ==
[2024-09-18 10:38] LABS: Glucose Challenge Gest 1H 50g 86 mg/dL (70-140)
== END | disposition home or self-care (01) ==
LOC: LAB 09:15
PROVIDERS: Referring Provider Advanced Practice Midwife; Visit Provider Advanced Practice Midwife
DX: Z13.1 Encounter for screening for diabetes mellitus (principal)
CPT/HCPCS: 36415; 82950

== ENCOUNTER → 2024-10-30 | Outpatient (CLI) | payer MEDICAID, SELFPAY ==
[2024-10-30 13:16] LABS: Syphilis Antibodies Nonreactive (Nonreactive)
[2024-10-30 13:20] LABS: HIV Nonreactive (Nonreactive)
== END | disposition home or self-care (01) ==
LOC: BWCLAB 11:41
PROVIDERS: Referring Provider Obstetrics & Gynecology; Visit Provider Obstetrics & Gynecology
DX: O09.93 Supervision of high risk pregnancy, unspecified, third trimester (principal); Z3A.00 Weeks of gestation of pregnancy not specified; O99.891 Other specified diseases and conditions complicating pregnancy; R30.0 Dysuria
CPT/HCPCS: 36415; 86703; 86780; 87086

== ENCOUNTER 2024-11-25 10:13 | Outpatient (CLI) | payer MEDICAID, SELFPAY ==
[2024-11-25 10:19] VITALS: BMI 29.8
[2024-11-25 10:31] VITALS: RESP 18; TEMP 37.2
[2024-11-25 10:51] LABS: Bacteria 0 SEEN /hpf (None Seen); Mucous, Urine 0 SEEN /hpf (<or=2+); Red Blood Cells-Urine 0 SEEN /hpf (0-5); White Blood Cells 0 SEEN /hpf (0-5)
[2024-11-25 10:58] LABS: Color, Urine Straw (Yellow); Glucose, Dipstick Normal (Normal); Ketone-Dipstick Negative (Negative); Leukocyte Esterase-Dipstick Negative /ul (Negative); Nitrite-Dipstick Negative (Negative); Occult Blood-Urine Negative /ul (Negative); Protein-Dipstick Negative (Negative); Specific Gravity, Urine 1.005 (1.002-1.030); Urine Bilirubin Dipstick Negative (Negative); Urine Clarity Clear (Clear); Urine Urobilinogen Normal (Normal)
[2024-11-25 11:19] VITALS: PULSE 104; O2SAT 99
[2024-11-25 11:32] LABS: Squamous Epithelial Cells - UA 0-5 SEEN /hpf (5-10)
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
== END 2024-11-25 11:55 | disposition home or self-care (01) ==
LOC: WPOUT 10:19 → WP 10:19
PROVIDERS: Referring Provider Advanced Practice Midwife; Visit Provider Advanced Practice Midwife
DX: O62.8 Other abnormalities of forces of labor (principal); K50.90 Crohn's disease, unspecified, without complications; O99.613 Diseases of the digestive system complicating pregnancy, third trimester; O26.23 Pregnancy care for patient with recurrent pregnancy loss, third trimester; O99.343 Other mental disorders complicating pregnancy, third trimester; F43.10 Post-traumatic stress disorder, unspecified; O99.820 Streptococcus B carrier state complicating pregnancy; O99.891 Other specified diseases and conditions complicating pregnancy; M99.03 Segmental and somatic dysfunction of lumbar region; M99.04 Segmental and somatic dysfunction of sacral region; Z3A.37 37 weeks gestation of pregnancy; Z86.19 Personal history of other infectious and parasitic diseases
CPT/HCPCS: 59025; 59050; 81001; 99221; G0378

== ENCOUNTER 2024-12-03 08:15 | Outpatient (CLI) | payer MEDICAID, SELFPAY ==
[2024-12-03 08:41] VITALS: BP 111/66; PULSE 96; RESP 16; TEMP 36.8; O2SAT 99
[2024-12-03 09:00] VITALS: BMI 29.9
[2024-12-03 09:26] LABS: ROM Internal Control Test YES-OK TO RESULT pt. (Internal QC); ROM Patient Test Negative (Negative); Record Kit Lot#, ROM+ K3358
--- NOTE | 2024-12-03 09:33 | OB.TRI.PN_ITS ---
Progress Notes Date of Service: 12/03/24 Progress Note: Patient presents for triage evaluation secondary to possible ROM questionable leaking FHT: 130 Moderate variability reactive no decelerations category I tracing [place]: no regular Contractions Assessment and plan: 39 weeks amniotic membranes intact vaginal discharge Reactive NST, reassuring maternal and status patient discharged to home to follow-up in office. See problem list details for additional plan information. Laboratory Studies: Laboratory Tests 12/03/24 Range/Units 08:45 Vag Amniotic Fld Detect Negative (Negative) Charges/Coding Procedures Urinary/Genital 52xxx-59xxx: 47477-37 non-stress test Interp
== END 2024-12-03 09:45 | disposition home or self-care (01) ==
LOC: WPOUT 08:20 → WP 08:21
PROVIDERS: Referring Provider Obstetrics & Gynecology; Visit Provider Obstetrics & Gynecology
DX: Z34.93 Encounter for supervision of normal pregnancy, unspecified, third trimester (principal)
CPT/HCPCS: 59025; 59050; 84112; G0378 ×2; 99221

== ENCOUNTER 2024-12-05 09:50 | Inpatient (IN) | payer MEDICAID, SELFPAY ==
[2024-12-05] VITALS (27 sets, daily range): BP systolic 84–122; BP diastolic 50–70; PULSE 72–100; RESP 16–18; TEMP 36.4–36.9; O2SAT 98–100; BMI 29.7
[2024-12-05] MEDS: Lactated Ringers 1,000 ML 50 ML IV (10:37)
[2024-12-05 10:56] LABS: Absolute Lymphocyte Count 1.78 X10^3/uL (0.83-4.51); Absolute Neutrophil Count 7.2 X10^3/uL (2.0-7.7); Basophil# 0.02 X10^3/uL; Basophil% 0.2 % (0-1); Eosinophil# 0.04 X10^3/uL; Eosinophils% 0.4 % (0-5); Hematocrit 28.5 % (37-47); Hemoglobin 9.2 g/dL (12.0-15.0); Lymphocyte # 1.78 X10^3/ul (0.83-4.51); Lymphocyte % 18.5 % (19-41); Mean Corp Hgb Conc 32.3 g/dL (32-36); Mean Corpuscular Hgb 27.6 pg (27.0-32.0); Mean Corpuscular Volume 85.6 fL (81-99); Mean Platelet Vol. 12.9 fl (6.2-12.0); Monocyte# 0.56 X10^3/uL; Monocyte% 5.8 % (0-10); NRBC Flagged by Analyzer 0 % (0-5); Neutrophil # 7.15 X10^3/uL (2.7-7.7); Neutrophil % 74.3 % (47-70); Platelet Count 170 K/mm3 (150-450); RBC Distribution Width CV 12.9 % (11.6-14.6); RBC Distribution Width SD 39.6 fl (35.1-43.9); Red Blood Count 3.33 M/mm3 (4.2-5.4); White Blood Count 9.6 K/mm3 (4.4-11.0)
[2024-12-05] MEDS: Oxytocin 15 Units/NS 250ml 15 UNITS/250 ML IV.SOLN 2 UNITS IV (11:28)
[2024-12-05] MEDS: Penicillin G Pot 5,000,000 UNITS in 0.9% Normal Saline (100mL MB+) 100 ML 150 UNITS IV (11:29)
[2024-12-05 11:55] LABS: Syphilis Antibodies Nonreactive (Nonreactive)
[2024-12-05 12:41] LABS: Amphetamine Urine NEGATIVE (<1000 ng/mL); Barbiturate Urine NEGATIVE (< 200 ng/mL); Benzodiazepine Urine NEGATIVE (< 200 ng/mL); Buprenorphine Urine NEGATIVE (< 200 ng/mL); Cocaine Urine NEGATIVE (< 300 ng/mL); Fentanyl, Urine NEGATIVE; Methadone Urine NEGATIVE (< 300 ng/mL); Opiates Urine NEGATIVE (< 300 ng/mL); Oxycodone, Urine NEGATIVE (< 100 ng/mL); PCP Urine NEGATIVE (< 25 ng/mL); THC Urine NEGATIVE (< 50 ng/mL)
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
[2024-12-05] MEDS: 0.9% Normal Saline Single 100 ML IV.SOLN. INTRA-UTER (13:16)
[2024-12-05] MEDS: Penicillin G 3,000,000 Units 50 ML 100 UNITS IV ×3 (15:33→23:31)
[2024-12-05] MEDS: fentaNYL 100 MCG/2 ML Ampul IV (20:49)
[2024-12-05] MEDS: 0.9% Saline Lock 10 ML Syringe IV (20:50)
--- NOTE | 2024-12-05 22:34 | PCM.PN.BLA ---
Progress Note arom clear fluid current tracing: FHT: 140 Moderate variability reactive no decelerations category I tracing Grantley: q 2-3 Contractions reviewed tracing abnormalities since last note: none A/P: pit per protocol give fentanyl now raom clear fluid 5 cm
[2024-12-06] VITALS (64 sets, daily range): BP systolic 92–135; BP diastolic 54–76; PULSE 68–216; RESP 15–18; TEMP 36.3–37.2; O2SAT 79–100
[2024-12-06] MEDS: Lactated Ringers 1,000 ML 999 ML IV ×2 (02:47→04:57)
--- NOTE | 2024-12-06 03:02 | PCM.PN.BLA ---
Progress Note labor stalled recommend proceed with epidural placement and IUPC.
[2024-12-06] MEDS: Penicillin G 3,000,000 Units 50 ML 100 UNITS IV (03:37)
[2024-12-06] MEDS: Lactated Ringers 1,000 ML 50 ML IV (03:45)
[2024-12-06] MEDS: fentaNYL-bupivacaine (epidural) 100 ML BAG EPIDURAL (04:16)
[2024-12-06] MEDS: Penicillin G 3,000,000 Units 50 ML 150 UNITS IV (07:25)
--- NOTE | 2024-12-06 08:14 | PCM.PN.CNM ---
Subjective Subjective more comfortable after top off from [employer]. Objective Data Objective Data Vital Signs: Vital Signs Temp Pulse Resp BP Pulse Ox 98.6 F 92 16 99/62 98 12/06/24 06:45 12/06/24 06:45 12/06/24 06:45 12/06/24 06:45 12/06/24 05:53 Weight: 157 lb 6.561 oz Body Mass Index (BMI) 29.7 Intake & Output: Intake and Output for Last 24 Hours 12/04/24 12/05/24 12/06/24 23:59 23:59 23:59 Intake Total 259.00 / 259.00 2743.74 / 2743.74 Output Total 450 / 450 Balance 259.00 / 259.00 2293.74 / 2293.74 Lab / Micro Data 12/05/24 10:37 Labs: Laboratory Results - last 24 hr 12/05/24 10:37: WBC 9.6, RBC 3.33 L, Hgb 9.2 L, Hct 28.5 L, MCV 85.6, MCH 27.6, MCHC 32.3, RDW Std Deviation 39.6, RDW Coeff of Gretel 12.9, Plt Count 170, MPV 12.9 H, Immature Gran % (Auto) 0.800, Neut % (Auto) 74.3 H, Lymph % (Auto) 18.5 L, [place] % (Auto) 5.8, Eos % (Auto) 0.4, Baso % (Auto) 0.2, Absolute Neuts (auto) 7.2, Absolute Lymphs (auto) 1.78, Nucleated RBC % 0, Syphilis Total Ab Nonreactive, Blood Type A POSITIVE, Antibody Screen NEGATIVE 12/05/24 11:00: Urine Opiates Screen NEGATIVE, U Buprenorphine Qual NEGATIVE, Ur Oxycodone Screen NEGATIVE, Urine Methadone Screen NEGATIVE, Urine Fentanyl Screen NEGATIVE, Ur Barbiturates Screen NEGATIVE, Ur Phencyclidine Scrn NEGATIVE, Ur Amphetamines Screen NEGATIVE, MDMA (Ecstasy) Screen Cancelled, U Benzodiazepines Scrn NEGATIVE, Urine Cocaine Screen NEGATIVE, U Cannabinoids Screen NEGATIVE, Ur Drug Screen Comment Cancelled NST FHR Rate Baby A Baseline: 135 Variability:: Moderate Accelerations:: 15 x 15 Decelerations:: Variable (occ) Assessment & Plan (1) Oligohydramnios in third trimester: COMMENT: SM plan IOL (2) GBS (group B streptococcus) UTI complicating : QUALIFIERS: Trimester: first trimester Qualified Code(s): O23.41 - Unspecified infection of urinary tract in , first trimester; B95.1 - Streptococcus, group B, as the cause of diseases classified elsewhere COMMENT: not high enough to treat, treat in labor PLAN: adequately treated with PCN, continue (3) Encounter for induction of labor: COMMENT: epiduralized, on pitocin 16, AROMd. PLAN: continue pitocin per protocol making cervical change now, 8-[address] Lee at 0730 anticipate
--- NOTE | 2024-12-06 08:43 | EX.PCM.OBVAG ---
Assessment & Plan (1) (spontaneous vaginal delivery): COMMENT: LC IAL- oligo boy Mox Maternal Data Information ADRIEL Calculator Estimated Delivery Date Method Current WG Current Estimate 12/08/24 LMP (Certain) 39w 5d Final ADRIEL: 12/08/24 Gestational age: 39.5 Vaginal Delivery Maternal Presentation Maternal Presentation: Medically Indicated Induction Maternal Presentation: at 39.5 present for IOL for oligohydramnios. pitocin for augmentation and AROM for clear fluid. epiduralized. made quick change from 5cm to 8-9cm, topped off for window for pain management. became fully dilated with pressure within 50 minutes of last check. Type of Induction: Pitocin and Amniotomy Medical Reason for Induction: Compromise: list: (oligo) Vaginal Delivery Information Procedure Performed: Spontaneous Vaginal Delivery Date of Procedure: 12/06/24 Type of anesthesia: Epidural Estimated Blood Loss: 100 Time of Delivery: 08:31 Findings Description of procedure: Patient began pushing and delivered the head in the CHRISTINA presentation. The head was delivered atraumatically and a loose nuchal cord ?12 was identified and easily reduced over the infant's head. The anterior and posterior shoulders delivered without complication followed by the rest of the and the was placed on the maternal abdomen. Delayed cord clamping was employed for approximately 60 seconds. Cord was clamped and cut and gentle traction was applied to the cord and the placenta delivered spontaneously immediately following it was noted to be intact with three-vessel cord. The perineum and vagina were inspected and noted to have no laceration. EBL was 100 cc. Patient and infant tolerated delivery well. Presentation: Vertex Amniotic Membrane Rupture Type: Artificial Amniotic Fluid Description: Clear Placental Delivery Description: Spontaneous Placenta Disposition: [facility] Cord Vessel Description: 3 Vessels Cord Entanglement: Around neck x 2, loose Infant A Gender: Male Delayed Cord Clamping: Yes Post Vaginal Deli Medications given after delivery: IV Pitocin Episiotomy Description: None Laceration: None Procedures Urinary/Genital 52xxx-59xxx: [id number] Vaginal Delivery global pkg
--- NOTE | 2024-12-06 08:48 | DCINST_ITS ---
Discharge Instructions Diet Discharge Diet: No restrictions DC O2, CPAP, BIPAP needs Home O2 Discharge instructions: No Dressing / Incision Discharge Activity: May Not Drive and May Shower May resume sexual activity in: 6 weeks Weight Bearing Status: Full weight bearing Dressing / Incision Call your doctor if your incision/area has: Sudden Increased Bleeding, Increased Pain/ Swelling and Foul Smelling Discharge Call your doctor if you observe: Fever of 101 or Higher, Numbness or Tingling, Change in Color, Inability to urinate, Inability to have a bowel movement, Using more than 1 pad per hour, Shortness of breath, Dizziness, Fainting spells, Chest pain, Calf discomfort and Uncontrolled pain Follow Up Care Please Follow Up With: Shereen Hernandez CNM When: 6 weeks , please call office to make an appointment. Congratulations on the of your baby! Test Results: Test results from this visit will be discussed in further detail at your follow- up appointment, if applicable. Discharge Plan Admission Admit Date/Time: 12/05/24 09:50 Attending Provider: Shereen Hernandez Primary Care Provider: Care PhysicianCristal Primary Discharge Orders/Prescriptions Prescriptions: No Action PNV no.[id number] 180 mcg-35 mg- 25 mg-5 mg tablet,chewable 1 tab PO DAILY valacyclovir [Valtrex] 500 mg tablet 500 mg PO QDAY Qty: 30 12RF Referrals / Follow Up: Cristal Jiménez Primary [Primary Care Provider] -
[2024-12-06] MEDS: Oxytocin 15 Units/NS 250ml 15 UNITS/250 ML IV.SOLN 83 UNITS IV (09:10)
[2024-12-06] MEDS: Acetaminophen 500 MG Tablet 1000 MG PO ×2 (10:49→19:42)
[2024-12-07 03:19] VITALS: BP 123/59; PULSE 86
[2024-12-07 03:23] VITALS: BP 123/59; PULSE 94; RESP 15; TEMP 36.8; O2SAT 98
[2024-12-07 08:11] VITALS: BP 119/75; PULSE 74
[2024-12-07 08:21] VITALS: BP 119/75; PULSE 80; RESP 16; TEMP 36.5; O2SAT 97
[2024-12-07] MEDS: Acetaminophen 500 MG Tablet 1000 MG PO (08:29)
--- NOTE | 2024-12-07 09:48 | PCM.PN.CNM ---
Subjective Subjective Patient doing well without complaints. Tolerating PO. Ambulating and voiding without difficulty. Feeding well. Denies chest pain, shortness of breath, calf pain/swelling, fevers, chills, lightheadedness. Objective Data Objective Data Vital Signs: Vital Signs Temp Pulse Resp BP Pulse Ox O2 Del Method 97.7 F L 80 16 119/75 97 Room Air 12/07/24 08:21 12/07/24 08:21 12/07/24 08:21 12/07/24 08:21 12/07/24 08:21 12/07/24 08:21 Oxygen Delivery Method Room Air Weight: 157 lb 6.561 oz Body Mass Index (BMI) 29.7 Intake & Output: Intake and Output for Last 24 Hours 12/05/24 12/06/24 12/07/24 23:59 23:59 23:59 Intake Total 259.00 / 259.00 3492.12 / 3492.12 Output Total 1550 / 1550 Balance 259.00 / 259.00 1942.12 / 1942.12 Lab / Micro Data 12/05/24 10:37 Physical Exam Const alert and oriented x3 Resp normal respiratory effort and normal air movement GI normal to inspection, nondistended, normoactive bowel sounds Manual OB Exam: presentation cephalic Extremity normal to inspection, full ROM and no calf tenderness Skin no rashes or lesions noted Psych mental status grossly normal Assessment & Plan (1) (spontaneous vaginal delivery): COMMENT: LC IOL- oligo boy Mox PLAN: s/p PPD # 1 1. routine post delivery care 2. breast feeding- support given 3. rh positive 4. rubella immune 5. dc home today
== END 2024-12-07 12:10 | disposition home or self-care (01) | DRG 560 ==
PROVIDERS: Obstetrics & Gynecology; Admitting Provider Registered Nurse; Referring Provider Registered Nurse; Visit Provider Registered Nurse
DX: O41.03X0 Oligohydramnios, third trimester, not applicable or unspecified (principal); Z37.0 Single live birth; O26.23 Pregnancy care for patient with recurrent pregnancy loss, third trimester; O69.81X0 Labor and delivery complicated by cord around neck, without compression, not applicable or unspecified; O76 Abnormality in fetal heart rate and rhythm complicating labor and delivery; O99.824 Streptococcus B carrier state complicating childbirth; Z3A.39 39 weeks gestation of pregnancy; Z86.19 Personal history of other infectious and parasitic diseases
CPT/HCPCS: 59025; 59050; 80307; 84112; 85025; 86780; 86850; 86900; 86901; 99221; A4216; G0378

== ENCOUNTER → 2025-01-23 | Outpatient (CLI) | payer MEDICAID, SELFPAY ==
[2025-01-23 12:13] LABS: Absolute Lymphocyte Count 2.01 X10^3/uL (0.83-4.51); Absolute Neutrophil Count 3.5 X10^3/uL (2.0-7.7); Basophil# 0.01 X10^3/uL; Basophil% 0.2 % (0-1); Eosinophil# 0.09 X10^3/uL; Eosinophils% 1.5 % (0-5); Hematocrit 35.2 % (37-47); Hemoglobin 10.7 g/dL (12.0-15.0); Lymphocyte # 2.01 X10^3/ul (0.83-4.51); Mean Corp Hgb Conc 30.4 g/dL (32-36); Mean Corpuscular Volume 88.7 fL (81-99); Monocyte# 0.45 X10^3/uL; Monocyte% 7.4 % (0-10); NRBC Flagged by Analyzer 0 % (0-5); Neutrophil # 3.52 X10^3/uL (2.7-7.7); Neutrophil % 57.6 % (47-70); Platelet Count 265 K/mm3 (150-450); RBC Distribution Width CV 15.3 % (11.6-14.6); RBC Distribution Width SD 50.3 fl (35.1-43.9); Red Blood Count 3.97 M/mm3 (4.2-5.4); White Blood Count 6.1 K/mm3 (4.4-11.0)
== END | disposition home or self-care (01) ==
PROVIDERS: Visit Provider Nurse Practitioner Women's Health
DX: D64.9 Anemia, unspecified (principal); Z12.4 Encounter for screening for malignant neoplasm of cervix
CPT/HCPCS: 36415; 85025; 88175; G0145

== ENCOUNTER → 2025-05-09 | Outpatient (CLI) | payer MEDICAID, SELFPAY ==
[2025-05-09 10:56] LABS: Hematocrit 33.3 % (37-47); Hemoglobin 10.6 g/dL (12.0-15.0); Immature Granulocytes Count 0.020 X10^3/uL (0.0-0.0); Mean Corp Hgb Conc 31.8 g/dL (32-36); Mean Corpuscular Volume 86.3 fL (81-99); Mean Platelet Vol. 11.9 fl (6.2-12.0); NRBC Flagged by Analyzer 0 % (0-5); Platelet Count 205 K/mm3 (150-450); RBC Distribution Width CV 13.9 % (11.6-14.6); RBC Distribution Width SD 43.1 fl (35.1-43.9); Red Blood Count 3.86 M/mm3 (4.2-5.4); White Blood Count 5.7 K/mm3 (4.4-11.0)
[2025-05-09 11:38] LABS: AST(SGOT) 19 U/L (<=31); Alanine Aminotransfer ALT/SGPT 16 U/L (<=34); Albumin, Serum 4.4 g/dL (3.5-5.0); Alkaline Phosphatase 50 U/L (35-104); Anion Gap 10 (5-15); BUN 15 mg/dL (4-19); BUN/Creat Ratio 20.1 RATIO (10-20); CRP 6.33 mg/L (0.0-3.0); Calcium,Total 9.0 mg/dL (7.6-11.0); Carbon Dioxide 21.7 mmol/L (21.0-32.0); Chloride 105 mmol/L (98-108); Globulin 3.2 g/dL (2.2-4.2); Glucose 78 mg/dL (70-99); Potassium 3.8 mmol/L (3.3-5.1)
[2025-05-13 09:08] LABS: Egg, Whole <0.10 kU/L (Class 0); Mussels <0.10 kU/L (Class 0)
[2025-05-14 16:09] LABS: Dopamine, Pl <10.0 pg/mL (0.0-36.7); Epinephrine, Pl 40.3 pg/mL (0.0-55.4); Gastrin, Serum 27 pg/mL (0-115); Immunoglobulin A 237 mg/dL (87-352); Norepinephrine, Pl 273 pg/mL (115-524)
== END | disposition home or self-care (01) ==
LOC: LAB 10:26
PROVIDERS: PCP Student in an Organized Health Care Education/Training Program; Referring Provider Internal Medicine Gastroenterology; Visit Provider Internal Medicine Gastroenterology
DX: R55 Syncope and collapse (principal); R10.30 Lower abdominal pain, unspecified
CPT/HCPCS: 36415; 80053; 82384; 82784; 82941; 83516; 85025; 85652; 86003; 86005; 86140; 86255

== ENCOUNTER → 2025-05-19 | Outpatient (CLI) | payer MEDICAID, SELFPAY | END | disposition home or self-care (01) | PROVIDERS: PCP Student in an Organized Health Care Education/Training Program; Visit Provider Nurse Practitioner Women's Health | DX: Z13.29 Encounter for screening for other suspected endocrine disorder (principal); N93.9 Abnormal uterine and vaginal bleeding, unspecified; R10.20 Pelvic and perineal pain unspecified side | CPT/HCPCS: 36415; 84439; 84443; 86376; 87070; 87205 ==

== ENCOUNTER → 2025-05-27 | Outpatient (CLI) | payer MEDICAID, SELFPAY ==
--- NOTE | 2025-05-27 07:52 | CT_ITS ---
PROCEDURE: ABDOMEN/PELVIS WITH CONTRAST 05/27/2025 REASON FOR EXAM: LEFT LOWER QUADRANT PAIN TECHNIQUE: Procedure Code: [id number] Modality: CT Procedure: ABDOMEN/PELVIS WITH CONTRAST Coronal and Sagittal reconstruction series were provided. One or more dose reduction techniques were used (e.g., Automated exposure control, adjustment of the mA and/or kV according to patient size, use of iterative reconstruction technique. FINDINGS: The peripheral soft tissues unremarkable. Small volume free fluid in the pelvis. Normal caliber abdominal aorta. The liver, gallbladder, pancreas, spleen, adrenals, and kidneys are unremarkable. No hydroureteronephrosis. The urinary bladder is unremarkable. Anteverted uterus. Normal caliber large and small bowel. Truncated but normal caliber appendix. No surrounding inflammatory changes. CT/Abdomen/Pelvis WITH Contrast IMPRESSION: Small volume free fluid within the pelvis which may be physiologic. No other acute abnormalities of the abdomen or pelvis. Reading Location: [id number]
--- NOTE | 2025-05-27 07:52 | US_ITS ---
PROCEDURE: PELVIC W/ TRANSVAGINAL REASON FOR EXAM: AUB, PELVIC PAIN TECHNIQUE: Procedure Code: [id number] Modality: US Procedure: PELVIC W/ TRANSVAGINAL COMPARISON: None FINDINGS: LMP: May 07, 2025. Measurements: Uterus: 11.2 cm x 5.8 cm x 4.6 cm with a volume of 157.7 mL Endometrial Thickness: 18 mm. Fluid is seen within the cervix. Right Ovary: 4.4 cm x 2.4 cm x 2.4 cm with a volume of 13.7 mL. Left Ovary: 4.2 cm x 1.6 cm x 1 cm with a volume of 3.4 mL. TRANSABDOMINAL: Uterus: Septated uterus. Endometrium: The endometrium is thickened. Fluid is seen within the endometrium. Right ovary: 2.0 cm 2.0 cm 1.4 cm right ovarian cyst. Left ovary: Normal size and echotexture. Other: No large pelvic mass identified. Transvaginal sonography was performed to better visualize the endometrium. TRANSVAGINAL: Uterus: Anteverted. Septated uterus. Endometrium: Endometrial thickening. Right ovary: 2 cm x 2 cm 1.4 cm right ovarian cyst. Left ovary: Normal size and echotexture. Other adnexal findings: None. Cul-de-sac: No free intraperitoneal fluid identified. Tenderness: No tenderness US/Pelvic w/ Transvaginal IMPRESSION: Endometrial thickening. Right ovarian cyst. Reading Location: [place] [id number]
== END | disposition home or self-care (01) ==
LOC: CT 07:51
PROVIDERS: PCP Student in an Organized Health Care Education/Training Program; Referring Provider Internal Medicine Gastroenterology; Visit Provider Internal Medicine Gastroenterology
DX: N93.9 Abnormal uterine and vaginal bleeding, unspecified (principal); R10.20 Pelvic and perineal pain unspecified side
CPT/HCPCS: 74177; 76830; 76856; Q9967

== ENCOUNTER → 2025-07-01 | Outpatient (CLI) | payer MEDICAID, SELFPAY ==
[2025-06-30 13:20] LABS: Hematocrit 38.0 % (37-47); Hemoglobin 11.7 g/dL (12.0-15.0); Immature Granulocytes Count 0.020 X10^3/uL (0.0-0.0); Mean Corp Hgb Conc 30.8 g/dL (32-36); Mean Corpuscular Volume 86.0 fL (81-99); Mean Platelet Vol. 11.9 fl (6.2-12.0); NRBC Flagged by Analyzer 0 % (0-5); Platelet Count 233 K/mm3 (150-450); RBC Distribution Width CV 14.9 % (11.6-14.6); RBC Distribution Width SD 46.9 fl (35.1-43.9); Red Blood Count 4.42 M/mm3 (4.2-5.4); White Blood Count 7.0 K/mm3 (4.4-11.0)
[2025-06-30 13:30] LABS: Internal QC Validated? YES +Cl - CLEAR BKGD; Pregnancy, Serum, hCG Quali. NEGATIVE Negative; Record Kit Lot#, Serum Preg. 0000980607
[2025-06-30 13:44] LABS: Anion Gap 12 (5-15); BUN 15 mg/dL (4-19); BUN/Creat Ratio 19.5 RATIO (10-20); Calcium,Total 9.3 mg/dL (7.6-11.0); Carbon Dioxide 23.6 mmol/L (21.0-32.0); Chloride 103 mmol/L (98-108); Glucose 85 mg/dL (70-99); Potassium 3.7 mmol/L (3.3-5.1)
--- NOTE | 2025-07-01 17:04 | PCM.TILTTABL ---
Staff Staff: Cydney Parsons and Sujata Campbell Summary Pre Test Resting HR: 76 Pre Test Resting BP: 117/76 Minimum Test HR: 80 Maximum Test HR: 151 Minimum Test BP: 84/71 Maximum Test BP: 122/87 Reason for Test Termination: Reached Maximum Test Time Physician Tilt Table Report Patient's Physicians Primary Care Physician: Kary Farias Indications/Diagnosis: Syncope Procedure Comments: Patient was brought to the noninvasive lab in the postabsorptive nonsedated state. Informed consent was obtained. Initial EKG and blood pressures were obtained with a heart rate of 76 bpm blood pressure 117/76 mmHg. The patient was then put in the 70 degree head upright tilt position for total duration of 20 minutes. Patient maintained adequate and stable heart rate and blood pressure with minimal symptomatology. The patient was then put in back in the recumbent position and administered 0.4 mg of sublingual nitroglycerin. Patient was put back in the 70 degree head upright tilt position. The initial heart rate andre from 94 to a peak of 151 bpm with a blood pressure dropping from 118 mmHg systolic to 82 mmHg within 3 minutes. The above was most suggestive of an orthostatic blood pressure response. Patient did complain of head pressure numbness and lightheadedness. Patient was then laid supine after 20 minutes and regained heart rate to pretest levels as well as blood pressure. Summary: Head upright tilt table test with likely orthostatic hypotension present.
[2025-07-01 17:08] VITALS: BP 117/76; BP 122/87; BP 84/71
== END | disposition home or self-care (01) ==
LOC: CVS 09:40
PROVIDERS: PCP Student in an Organized Health Care Education/Training Program; Referring Provider Internal Medicine Gastroenterology; Visit Provider Internal Medicine Gastroenterology
DX: R55 Syncope and collapse (principal); R10.30 Lower abdominal pain, unspecified
CPT/HCPCS: 36415; 80048; 84703; 85025; 93660